=== PATIENT | male | born 1955 | race Caucasian/White ===

== ENCOUNTER 2016-12-29 06:02 | Inpatient (IN) | payer BC ==
--- NOTE | 2016-12-14 12:39 | HP ---
ADDENDUM FOR MEDICATIONS NOW INCLUDED ON THIS REPORT HISTORY AND PHYSICAL: DATE OF ADMISSION: 12/29/16 He will be coming into [facility] for a left total knee replacement on 12/29/16. CHIEF COMPLAINT: Left knee pain, deformity and limited walking distance. HISTORY OF PRESENT ILLNESS: His left knee has been bad for several years. His right knee is also bothering him a lot and he has gotten to the point where he can walk just 1 to 2 blocks. He is doing stairs one at a time and because his left knee is worse on stairs and with carrying things, he wanted to proceed with left total knee replacement first. PAST MEDICAL HISTORY: He is allergic to PENICILLIN, but he has had Keflex in the past, so we will plan to use cefazolin for his perioperative prophylaxis. PAST SURGICAL HISTORY: Low back, Dr. Tellez, and then the low back again with Dr. Ash. MEDICATIONS: Daily medications include: 1. Metoprolol. 2. One other antihypertensive. SOCIAL HISTORY: Smoking one-half pack per day. Drinks, 8 to 10 beers each Wednesday and Wednesday night. The patient has no history of chest pain, no history of heart attack. He has been seen and checked preoperatively by Dr. Mcmahan. REVIEW OF SYSTEMS: No history of DVT or pulmonary embolism. No history of bleeding tendencies, though he did have some extra bleeding after one of his low back surgeries. The kidneys are okay. No cancers. He has been seen and checked by Dr. Hartman. His prostate is okay and a cystoscopy this year was also okay. PHYSICAL EXAMINATION GENERAL: On current exam, he is overweight. He is not acutely distressed. HEENT: The cranial nerves are grossly intact. Head NC/AT. LUNGS: Clear bilaterally. HEART: Regular, S1 and S2 normal. No murmurs or gallops. ABDOMEN: Round, soft and nontender. I do not appreciate any organomegaly. EXTREMITIES: The left knee has varus with extension -3 degrees, flexion 105 with pain, stable MCL and LCL. Thighs and calves are soft. Left dorsalis pedis and posterior tibial pulses are 2+. DIAGNOSTIC STUDIES: Left knee x-rays; [id number] medial arthritis with sclerosis, osteophyte formation and lateral joint widening. IMPRESSION: Severe arthritis of the left knee. We discussed the risks and complications including that his weight and the presence of his smoking increases his risks for infection and deep venous thrombosis and pulmonary embolism. He would like to proceed with those risks, so that he can have less pain in his knee. PLAN: Left total knee replacement. ADDENDUM: MEDICATIONS: His daily meds are: 1. Tramadol 50 mg 1 or 2 at night as needed for pain. 2. Losartan 100 mg each day. 3. Metoprolol extended release 50 mg each day. 4. Aspirin 325 as needed. 5. Omeprazole 20 mg 1 a day. [id number]/[facility] #: [id number]/CPS #: [id number] MTDD
--- NOTE | 2016-12-14 13:54 | HP ---
ADDENDUM: MEDICATIONS: His daily meds are: 1. Tramadol 50 mg 1 or 2 at night as needed for pain. 2. Losartan 100 mg each day. 3. Metoprolol extended release 50 mg each day. 4. Aspirin 325 as needed. 5. Omeprazole 20 mg 1 a day. [id number]/[facility] #: [id number] MTDD
[~2016-12-29 06:02] MED LIST: Buffered Lidocaine 0.9% SYRIN* 5 ML/SYR SYRINGE INTRADERM ONE; Buffered Lidocaine 0.9% SYRIN* 5 ML/SYR SYRINGE ONE; Dexamethasone IV* 4 MG/ML 1 ML (4 MG) IV SLOW PU ONE; Dexamethasone IV* 4 MG/ML 1 ML (4 MG) ONE; ceFAZolin 2 GM PREMIX (*) 50 ML IVPB ONE
[2016-12-29] MEDS ORDERED: Levalbuterol 1.25MG/0.5ML NEB ONE (07:23)
[2016-12-29] MEDS ORDERED: Levalbuterol 0.63MG/3ML NEB* UNIT OF USE INH ONE (07:23)
[2016-12-29] MEDS ORDERED: KETAMINE HCL* 50 MG/ML 10 ML VIAL ONE (07:26)
[2016-12-29] MEDS ORDERED: Morphine PF AMP (0.5MG/ML)* 5 MG/10 ML AMP ONE (07:27)
[2016-12-29] MEDS ORDERED: Midazolam* 1 MG/ML 5 ML VIAL (5 MG) ONE ×2 (07:27→07:58)
[2016-12-29] MEDS ORDERED: Bupivacaine 0.5% SDV PF* 30 ML VIAL ONE (07:37)
[2016-12-29] MEDS ORDERED: fentaNYL* 50 MCG/ML 2 ML VIAL (100 MCG VIAL) ONE (07:42)
[2016-12-29] MEDS ORDERED: ceFAZolin 1 GM ADVAN(*) 1 GM ADDV.VIAL IVPB ONE (07:56)
[2016-12-29] MEDS ORDERED: oxyCODONE/Acetamin 5/325 MG* TAB PO PRN ×3 (08:42→11:45)
[2016-12-29] MEDS ORDERED: Naloxone* 0.4 MG/ML 1 ML VIAL IV PRN (08:42)
[2016-12-29] MEDS ORDERED: Nalbuphine* 20 MG/ML 1 ML VIAL IV PRN ×2 (08:42)
[2016-12-29] MEDS ORDERED: Ondansetron INJ* 2 MG/ML VIAL IV PRN ×2 (08:42→23:30)
[2016-12-29] MEDS ORDERED: fentaNYL* 50 MCG/ML 2 ML VIAL (100 MCG VIAL) IV PRN (08:42)
[2016-12-29] MEDS ORDERED: DiMENhydriNATE IV* 50 MG/ML VIAL IV PUSH PRN (08:42)
[2016-12-29] MEDS ORDERED: Propofol* 10 MG/ML 20 ML BTL IV PUSH ONE ×2 (08:51→10:11)
[2016-12-29] MEDS ORDERED: Lidocaine 1.5% EPI 1:200,000* 30 ML SDV ONE (09:58)
[2016-12-29] MEDS ORDERED: Morphine INJ* 4 MG/ML 1 ML CARPUJECT IV PRN (11:45)
[2016-12-29] MEDS ORDERED: Famotidine TAB* 20 MG PO PRN (12:05)
--- NOTE | 2016-12-29 12:49 | RAD ---
HISTORY: Status post left knee arthroplasty COMPARISONS: August 26, 2016 VIEWS: 2, Frontal and lateral views of the left knee FINDINGS: BONE DENSITY: Normal. BONES: The patient is status post left knee arthroplasty. There is no hardware failure or osteolysis. JOINTS: The patient is status post left knee arthroplasty. ALIGNMENT: There is no dislocation. SOFT TISSUES: There is postsurgical change to the soft tissue. OTHER FINDINGS: None. IMPRESSION: STATUS POST LEFT KNEE ARTHROPLASTY.
[2016-12-29] MEDS: ceFAZolin 1 GM VIAL(*) 1 GM in NS 0.9% 50 ML* 50 ML IVPB SCH ×2 (15:03→23:30)
[2016-12-29] MEDS: Nicotine Inhaler* 10 MG AMP Q2H PRN CRAVING INH ×2 (15:35→21:12)
[2016-12-29] MEDS ORDERED: Mouth Piece, Nicotine* 1 EACH CARTRIDGE INH ONE (16:00)
[2016-12-29] MEDS: Nicotine PATCH 14 MG/24 HR* PATCH TRANSDERM SCH (16:29)
[2016-12-29] MEDS: oxyCODONE/Acetamin 5/325 MG* TAB PO PRN ×2 (18:05→21:02)
[2016-12-29] MEDS: Docusate CAP* 100 MG PO SCH (21:02)
[2016-12-29] MEDS: Aspirin TAB* 325 MG PO SCH (21:03)
[2016-12-29 22:18] LABS: Manual Entry Verification MER0007; Rapid HIV INT CONT QC Line Present; Rapid HIV Kit Lot# H017003
[2016-12-29] MEDS ORDERED: Acetaminophen TAB* 325 MG PO PRN (23:30)
[2016-12-29] MEDS ORDERED: diPHENhydraMINE PO* 25 MG PO PRN (23:30)
[2016-12-29] MEDS ORDERED: diPHENhydraMINE IV* 50 MG/ML 1 ml VIAL (BENADRYL) IV PRN (23:30)
[2016-12-29] MEDS: Nicotine Patch Removal NOTE PATCH OFF SCH (23:32)
[2016-12-30] MEDS: Temazepam CAP* 15 MG PO PRN (00:08)
[2016-12-30] MEDS: oxyCODONE/Acetamin 5/325 MG* TAB PO PRN ×5 (00:08→19:27)
--- NOTE | 2016-12-30 00:46 | OP ---
CC: Dr. Mcmahan * DATE OF OPERATION: 12/29/16 - ROOM #347 DATE OF : 57 SURGICAL CARE: Left knee. SURGEON: Joaquim Mcguire MD ASSISTANTS: ELISHA Parks, nurse first aid and Rohini rn medical surgical. ANESTHESIOLOGIST: Dr. Les Brice. ANESTHESIA: Spinal with Duramorph and IV sedation. PRE-OP DIAGNOSIS: Severe arthritis of the left knee with varus malalignment. POST-OP DIAGNOSIS: Severe arthritis of the left knee with varus malalignment. OPERATIVE PROCEDURE: Left total knee replacement. COMPONENTS UTILIZED: [place] Persona knee was utilized posterior stabilized type , size 9 femur, 35 patella, size F tibia and a 10 articular surface. COMPLICATIONS: There were no complications. DRAINS: One Hemovac drain left knee at the end of the case. CONDITION: Stable to the recovery room. OPERATIVE INDICATIONS: Persistent severe pain, left knee. It has been nonresponsive to nonoperative care and a left total knee replacement was recommended. DESCRIPTION OF PROCEDURE: The patient was brought to the operating room and placed on the operating room table in a supine position, then into a seated position for administration of spinal anesthetic. After that was done, he was returned to the supine position. A Haywood catheter was inserted. The left proximal thigh was wrapped with a tourniquet. The left knee was given a preliminary chlorhexidine prep and then the left leg was prepped from the tourniquet to the tips of the toes and draped free and carefully sealed off in the usual fashion for arthroplasty of the knee. The leg, ankle and foot portion were sealed off with an impermeable drape with a Vi-Drape and Ioban drapes above that. We did our universal protocol time-out confirming Kenny Nelson and a plan for left total knee replacement. We all agreed and we proceeded. The surgical care was done without tourniquet until we got to the cleanup and cementing phase of the case and then the surgery was done with the knee acutely flexed. The left foot was kept on a padded foot piece. Skin incision went from two fingerbreadths proximal to the superior pole of the patella to the medial aspect of the tibial tubercle. Skin and subcu divided down to the deep fascia. Careful hemostasis checked and achieved throughout the case utilizing electrocautery. The knee was entered medial parapatellar after dividing the quad tendon at the junction of the vastus medialis tendon and the rectus femoris tendon staying as close to vastus medialis muscle as possible. The knee had clear, slightly goldish synovial fluid that was abundant. The anteromedial soft tissues on the tibia were divided down to the bone just medial to the tibial tubercle. The anteromedial soft tissues on tibia were elevated subperiosteally going around to the deep MCL and then to the posteromedial corner of the knee. The knee had complete eburnation of medial femoral condyle, medial tibial plateau. The medial surface of the lateral femoral condyle was also completely eburnated wearing against the tibial spine. The patella had large osteophytes. There were large osteophytes on the medial femoral condyle and medial tibial plateau and the intercondylar notch. The remains of the anterior horn of the medial meniscus were carefully excised. The MCL was actually visualized during the case and carefully preserved throughout. The ACL and PCL were uplifted from their femoral origins and the tibial was made, so that it could be subluxated forward from under the femur and the PCL was carefully excised. Great care was taken while working posteriorly in the knee and towards the popliteal fossa. The distal anterior femur was exposed subperiosteally for referencing and measuring. The suprapatellar pouch had thickened synovium that was 3 to 4 mm thickened and it was carefully excised in the middle of the case. The lateral meniscus was carefully excised and care taken to see that we had good hemostasis at the periphery of the lateral meniscus in the region of the lateral geniculate. The proximal tibial cut was made first. Our goal here was to have a tibial surface so that it would have a slight posterior slope and would be perpendicular to the long axis of the tibia, removing just 1 to 2 mm at the low point of the medial tibia and 10 to 14 mm laterally. After this was completed, then the femoral intramedullary drill was utilized and the femoral canal was suctioned to discourage embolization. The distal femoral cutting guide was then applied on 2 with 6 degrees of valgus and the distal femoral cuts were completed and the extension gap was just right for a 10-mm block. The femur was measured for a 9. The femoral 4- in-1 cuts were completed with the guide for the 9 and following this we finished removal of the medial meniscus, the PCL , posterior and some remaining lateral meniscus. Osteophyte was removed from the posterior medial femoral condyle. At this stage, we had nice ligamentous balance in flexion at 90 degrees with a 10-mm block. The femur was then cleaned x6 with pulse saline, suctioned empty and bone plug inserted. The tibia was completed for a size F. The knee was then articulated and extended with an F tibia, 10 articulate surface and then 9 femur with full knee extension , stable ligaments in extension, and stable ligaments in 90 degrees of flexion. The patella was cut flat, a 35 was chosen, 3 drill holes were made and these were undercut for optimal cement interdigitation. A lateral release was not necessary. The final components were then opened. The leg was exsanguinated, the tourniquet was elevated to 275 and the knee was cleaned in extension with 2 L of pulse saline irrigation. The knee was then cleaned in flexion with 2 L of pulse saline irrigation. All the bony surfaces were cleaned with clean lap, sponges and dried. The cement was mixed, the components were cemented into position, the patella followed by the tibia, followed by the femur. Each component was impacted. Excess cement was removed and the knee was articulated and extended during the final hardening. After final hardening, we checked posteriorly for retained cement fragments. These were excised. The lidocaine with epinephrine inserted posteromedial, medial and lateral into the pericapsular tissues. We then proceeded with careful closure. The quad mechanism closed with interrupted #1 Vicryl in figure -of-eight fashion down to and including the medial retinaculum. A Hemovac drain was brought out the superolateral suprapatellar pouch. We irrigated during closure with saline as well. After closure of the medial retinaculum and closing distally with 0 Vicryl, then the deep fascia and bursa closed with interrupted 0 Vicryl. Superficial subcu closed with 3-0 Vicryl and the skin closed with carlos. The skin was washed and dried and covered with Betadine soaked release followed by sterile gauze, sterile Webril, Cryo-therapy cuff, two ABD pads and then a 6-inch Reji bandage loosely applied. The posterior tibial pulse was 2+ at the end of the case and the knee was also flexed completely and extended several times during the closure, flexing the knee beyond 120 degrees several times during the closure and noting that we had a full extension and stable ligaments in extension and stable ligaments in 90 degrees of flexion. The patient was returned to the recovery room in stable and satisfactory condition, having tolerated the procedure very well. Postoperative radiographs showed satisfactory alignment of the knee replacement on AP and lateral views. [id number]/[facility] #: [id number] GUICHO
[2016-12-30 05:40] LABS: Hematocrit 35 % (42-52); Hemoglobin 11.7 g/dl (14.0-18.0)
[2016-12-30 06:03] LABS: Calcium 8.5 mg/dL (8.6-10.3); EGFR African American 77.9 (>60); EGFR Non-African American 60.6 (>60); Potassium 4.2 mmol/L (3.5-5.0)
[2016-12-30] MEDS: Omeprazole CAP* 20 MG PO SCH (06:31)
[2016-12-30] MEDS: HYDROmorphone INJ* 1 MG/ML CARPUJECT SYRINGE IV SLOW PU PRN ×2 (07:23→12:52)
--- NOTE | 2016-12-30 07:29 | PN ---
Progress Note - Progress Note Date of Service: 12/30/16 SOAP: Subjective:Pain left knee and little sleep [] Objective:99.1F and moving and breathing well. Alert, cooperative. Able to SLR easily left. 2 drains rmoved left knee. Left PT pulse is 2 plus. All exercises done left leg. H/H is 11.7 and 35%. Electrolytes are OK. HEP C is negative and HIV is NON React. [] Assessment: Doing satisfactorily. Needs pain med which is ordered. [] Plan: Up with walker and drinking and doing brething exercises. []
[2016-12-30] MEDS: Nicotine PATCH 14 MG/24 HR* PATCH TRANSDERM SCH (07:36)
[2016-12-30] MEDS: Nicotine Inhaler* 10 MG AMP Q2H PRN CRAVING INH ×2 (07:37→21:47)
[2016-12-30] MEDS: Docusate CAP* 100 MG PO SCH ×2 (08:10→21:45)
[2016-12-30] MEDS: ceFAZolin 1 GM VIAL(*) 1 GM in NS 0.9% 50 ML* 50 ML IVPB SCH (08:10)
[2016-12-30] MEDS: Metoprolol Tartrate TAB* 25 MG PO SCH (08:10)
[2016-12-30] MEDS: Aspirin TAB* 325 MG PO SCH ×2 (08:10→21:44)
[2016-12-30] MEDS: Vitamin THERAPEUTIC TAB PO SCH (08:10)
[2016-12-30] MEDS ORDERED: Losartan TAB* 25 MG PO SCH (09:00)
[2016-12-30] MEDS ORDERED: oxyCODONE/Acetamin 5/325 MG* TAB PO PRN (13:31)
[2016-12-30] MEDS ORDERED: HYDROmorphone INJ* 1 MG/ML CARPUJECT SYRINGE IV SLOW PU PRN (13:35)
[2016-12-30 13:53] LABS: Hematocrit 29 % (42-52); Hemoglobin 9.8 g/dl (14.0-18.0); Mean Corpuscular HGB Conc 34 g/dl (31-36); Mean Corpuscular Hemoglobin 28 pg (27-31); Mean Corpuscular Volume 83 fL (80-94); Mean Platelet Volume 7 um3 (7.4-10.4); Red Cell Distribution Width 13 % (10.5-15); White Blood Count 11.6 10^3/ul (3.5-10.8)
[2016-12-30 13:55] LABS: Comments Flag Yes
[2016-12-30 13:56] LABS: Add Diff/Slide Review? Slide Review Added
[2016-12-30 13:56] LABS: BUN/Creatinine Ratio 19.8 (8-20); EGFR African American 86.9 (>60); EGFR Non-African American 67.6 (>60); Potassium 3.9 mmol/L (3.5-5.0)
[2016-12-30 13:58] LABS: Troponin I 0.01 ng/mL (<0.04)
[2016-12-30] MEDS ORDERED: Perflutren Lipid Microsphere* 3 ML VIAL ONE (15:06)
--- NOTE | 2016-12-30 15:58 | CONS ---
CC: Dr. Mcmahan; Dr. Mcguire * CONSULTATION REPORT: DATE OF CONSULT: 12/30/16 PRIMARY CARE PROVIDER: Dr. Mcmahan. REQUESTING PHYSICIAN IN CONSULT: Dr. Mcguire. ATTENDING PHYSICIAN WHILE IN THE HOSPITAL: Dr. Eloina Broussard (report dictated by Mert Michel NP). REASON FOR MEDICAL CONSULTATION: Evaluation of presyncope. HISTORY OF PRESENT ILLNESS: Mr. Nelson is a 61-year-old male patient who presented to Dr. Mcguire's service in the outpatient setting with complaints of knee discomfort. He had failed conservative therapy. He underwent a total knee replacement yesterday on the left side, which he was doing well with up until this morning. He was sitting in his chair just about 30 minutes ago, he had received a dose of Dilaudid 20 minutes prior. About 20 minutes after that, he started feeling lightheaded, dizzy, felt like that he was going to faint. He rang his cuello, the nurses came in and they evaluated him, checked his blood pressure and his blood pressure was in 70s. They immediately called a catcall and we responded. In evaluating the patient, he says he feels lightheaded. He says he is not having any chest pain. There is no shortness of breath. Denies any abdominal pain. He does not feel nauseated. He said his fingertips felt tingling, he denied any trouble with speech or facial drooping or weakness to one side. He says he was not having any knee pain. Currently, he does state that he did not have any palpitations before this, after he just felt like he had tunnel vision like he was going to faint. Immediately fluids were opened wide open and with about 600 mL falling in he was starting to feel a lot better and his pressures were actually coming up. Because of this episode, we were asked to evaluate in consult. PAST MEDICAL HISTORY: According to the patient include: 1. Back pain. 2. Hypertension. 3. GERD. PAST SURGICAL HISTORY: 1. He has had a back surgery x2. 2. He has had clavicle surgery. 3. He has had a left total knee replacement. MEDICATIONS: The home medications according to the list that he presented to us include: 1. Tramadol 100 mg every 6 hours as needed. 2. Prilosec 20 mg p.o. daily. 3. Naproxen 500 mg every 8 hours as needed. 4. Lopressor 25 mg daily. 5. Losartan 100 mg daily. 6. Loperamide 8 mg p.o. in the morning. 7. Pepcid 1 tablet p.o. in the morning as needed. 8. Diphenhydramine 150 mg at bedtime. 9. Aleve 440 mg p.o. in the morning as needed. ALLERGIES TO MEDICATIONS: Include MORPHINE, ADHESIVE TAPE, and PENICILLIN. FAMILY HISTORY: Father of prostate cancer. Mother had a history of Alzheimer's. SOCIAL HISTORY: He does drink on the weekends. He does smoke about about half - pack-a-day. Surrogate decision maker is not appointed at this point; it was reviewed, he did not wish to appointment. REVIEW OF SYSTEMS: There is no documented fever. He denied any significant weight change. There was no double vision or no ear discharge. He denies having any rhinorrhea. There is no sore throat, no thyroid enlargement. Denies having any chest pain. Denies any orthopnea, no nocturnal dyspnea. There was no abdominal pain. There was no nausea, no vomiting. There was no dysuria. No frequency. There was presyncope, but no loss of conscious. There was no seizure like activity. Review of 14 systems completed, all others negative. PHYSICAL EXAM: Vital Signs: Blood pressure this morning was 123/65, pulse 80, respirations 17, his O2 sat was 100%, temperature was 98.8. During the catcall , initial blood pressure was 75/40. His repeat blood pressure now was 102/60. General: At this time, Mr. Nelson is a 61-year-old male patient. He appears to be well-nourished, well-developed, does not appear to be in any acute distress currently. He is awake and he is alert. HEENT: Head, atraumatic, normocephalic. Eyes: EOMs intact. Sclerae anicteric, not pale. Neck: Supple. Throat: Oral mucosa appears to be moist. No oropharyngeal erythema. Heart: Sounds S1, S2. Regular rate and rhythm. No murmurs, rubs, or gallops. Lungs: Clear to auscultation. No wheezes, rales, or rhonchi. Abdomen: Soft, flat, nontender. Bowel sounds are present. Extremities: Distal CSM checks are intact to the left lower extremity. Neurologically, he is awake, he is alert, he is oriented x3. His speech is clear. His tongue is midline. His technical support manager were equal. Iwwtyw-hv-wcyi intact bilaterally. Zmnx-fd-lpnt intact bilaterally. He is unable to ambulate with the left leg because of his preoperative leg, but he has no gross focal deficits. His skin is intact with the exception there is an incision to the left knee, which is covered with an Reji dressing dry and intact. LABORATORY DATA: The labs from today, hemoglobin 11.7, hematocrit 35. His sodium is 136, potassium 4.2, chloride 103, his bicarb was 27, his BUN was 22, creatinine 1.22. Serology was negative. For hep C and HIV, he did have an EKG obtained today, which revealed a normal sinus rhythm with rates of 70s. He did have a right bundle-branch block. He did have subtle elevation in V2, but when I looked back into his EKGs previously he has had elevation in this lead, appears to be J point elevation, appears to be unchanged and is not new. Old medical records were reviewed. ASSESSMENT AND PLAN: Mr. Nelson is a 61-year-old male patient that presented to orthopedic services for an elective left total knee replacement. Today after 20 minutes of receiving some Dilaudid. He started feeling dizzy, felt like he was going to pass out. His pressures were in the 70s. We were asked to evaluate in consult. My recommendations at this point are: 1. Status post right total knee replacement, further management by Dr. Mcguire. 2. Hypertension. I am going to cut back on his losartan in the immediate postoperative setting. I will continue the beta bari. We will monitor the blood pressure closely; if we need to, we will restart the losartan, but this may have contributed. 3. Presyncope. I will cycle troponins. His EKG was stable. I am going to repeat his lytes and CBC now. We will get orthostatics when we are able. We will check an echo. He is asymptomatic now. We are going to give him a liter of fluids wide open, which seems to be helping him and we will continue to follow him closely. 4. Gastroesophageal reflux disease, continue meds as described. 5. DVT prophylaxis. Per the primary team. 6. Code status. Full code. 7. Fluids, electrolytes, and nutrition. I would recommend a regular diet. TIME SPENT: On consult 60 minutes, greater than half the time spent face-to- face with the patient obtaining history and physical; other half time spent going over the plan of care with the patient and implementing the plan of care. I did discuss this plan of care with my attending, Dr. Broussard; she is in agreement. MERT MICHEL, CIGARETTE SELLER [id number]/[facility] #: [id number] GUICHO
--- NOTE | 2016-12-30 16:05 | ECHO ---
Patient: JESUS WANG [facility] Rec#: [id number] : 1955 Date: 12/30/2016 Age: 61y Height: 167.64 cm / 66.0 in Weight: 127.91 kg / 281.9 lbs Sex: M BSA: 2.31 Room#: 347 Admit Date#: 12/29/2016 Type: Inpatient Referring: Mert Michel NP Reading: Esthela Huddleston MD Lieutenant General: Yary Bautista RDCS,RDMS CC: Bobby Mcmahan MD Transthoracic Echocardiogram Indication: Pre-syncope BP: 131/69 HR: 86 Rhythm: NSR Findings History: S/P left knee replacement, smoker Technical Comments: The study is technically limited due to poor acoustic windows. Completed 1550 Left Ventricle: The left ventricular chamber size is decreased.on visual estimate LV chamber diameter appears small. Mild to moderate concentric left ventricular hypertrophy is observed. The left ventricle appears hyperdynamic. The estimated ejection fraction is 60-65%. Abnormal left ventricular diastolic filling is observed, consistent with impaired relaxation. Left Atrium: The left atrium is mildly dilated. Right Ventricle: The right ventricular chamber size and systolic function are within normal limits. The right ventricle wall thickness is mildly increased. Right Atrium: The right atrium is slightly dilated. Aortic Valve: There is no evidence of aortic valve thickening. Systolic excursion of the aortic valve is normal. There is no evidence of aortic regurgitation. There is no evidence of aortic stenosis. Mitral Valve: The mitral valve leaflets do not appear thickened. There is no evidence of mitral regurgitation. There is no evidence of mitral stenosis. Tricuspid Valve: The tricuspid valve leaflets are normal. There is trace tricuspid regurgitation. Unable to estimate the right ventricular systolic pressure. Pulmonic Valve: The pulmonic valve structure is not well visualized. Pericardium: There is no significant pericardial effusion. Aorta: The ascending aorta is not well visualized. There is no dilatation of the aortic arch. The aortic root is normal in size. Pulmonary Artery: The main pulmonary artery is not well visualized. Venous: The inferior vena cava is dilated. There is a greater than 50% respiratory change in the inferior vena cava dimension. Contrast: Definity was used to optimize study. A total of 4 ml was used Conclusions The study is technically limited due to poor acoustic windows. Mild to moderate concentric left ventricular hypertrophy is observed. Visual appearance of small LV chamber. The left ventricle appears hyperdynamic. Normal wall motion. The estimated ejection fraction is 60-65%. Abnormal left ventricular diastolic filling is observed, consistent with impaired relaxation. The right ventricle wall thickness is mildly increased. The right ventricular chamber size and systolic function are within normal limits to hyperdynamic. Bi atrial enlargement. All valves appear structurally normal with normal function. No prior echo to compare. Measurements Name Value Normal Range RVDdMajor (2D) 3.3 cm (2.2 - 4.4) RAd ISD 4CH 5.3 cm (3.4 - 4.9) RA (A4C)W 4.2 cm (2.9 - 4.6) Aortic Annulus 2.4 cm (1.4 - 2.6) Aortic arch 3 cm (1.8 - 3.4) LAd ISD 4CH 5.8 cm (2.9 - 5.3) LA ISD 4CH W 5.2 cm (2.5 - 4.5) Name Value Normal Range LA ESV SP 4CH (A/L) 116.46 ml - LA ESV SP 2CH (A/L) 69.87 ml - LA ESV BP (A/L) 94.25 ml - LA ESV BP (A/L) index 41 ml/m2 - LA ESV SP 4CH (MOD) 110.51 ml - LA ESV SP 2CH (MOD) 66.42 ml - Name Value Normal Range MV E-wave Vmax 0.7 m/sec - MV deceleration time 110 msec - MV A-wave Vmax 0.9 m/sec - MV E:A ratio 0.8 ratio - P. vein S-wave Vmax 0.5 m/sec - P. vein D-wave Vmax 0.4 m/sec - P. vein S:D Vmax ratio 1.2 ratio - P. vein A-wave duration 93 msec - Name Value Normal Range AV Vmax 1.6 m/sec - AV VTI 26 cm - AV peak gradient 10 mmHg - AV mean gradient 5.6 mmHg - LVOT Vmax 1.4 m/sec - LVOT VTI 26 cm - LVOT peak gradient 8 mmHg - LVOT mean gradient 4.4 mmHg - DARYN Vmax 1.1 m/sec - Name Value Normal Range RAP 8 mmHg - IVC diameter 2.3 cm - Name Value Normal Range PV Vmax 0.9 m/sec - PV peak gradient 3.2 mmHg -
[2016-12-30] MEDS ORDERED: Famotidine TAB* 20 MG PO ONE (21:28)
[2016-12-30] MEDS: fentaNYL* 50 MCG/ML 2 ML VIAL (100 MCG VIAL) IV SLOW PU PRN (21:45)
[2016-12-30] MEDS: Nicotine Patch Removal NOTE PATCH OFF SCH (21:47)
[2016-12-31] MEDS: Temazepam CAP* 15 MG PO PRN ×2 (00:20→21:25)
[2016-12-31] MEDS: oxyCODONE/Acetamin 5/325 MG* TAB PO PRN ×3 (00:20→13:21)
[2016-12-31] MEDS: fentaNYL* 50 MCG/ML 2 ML VIAL (100 MCG VIAL) IV SLOW PU PRN (05:12)
[2016-12-31] MEDS: Omeprazole CAP* 20 MG PO SCH (07:12)
[2016-12-31] MEDS: Nicotine PATCH 14 MG/24 HR* PATCH TRANSDERM SCH (07:19)
[2016-12-31] MEDS: Vitamin THERAPEUTIC TAB PO SCH (08:23)
[2016-12-31] MEDS: Aspirin TAB* 325 MG PO SCH ×2 (08:23→19:35)
[2016-12-31] MEDS: Metoprolol Tartrate TAB* 25 MG PO SCH (08:23)
[2016-12-31] MEDS: Docusate CAP* 100 MG PO SCH ×2 (08:23→21:21)
[2016-12-31] MEDS: Magnesium Hydroxide LIQ* 30 ML UDC PO SCH ×3 (08:25→21:21)
[2016-12-31 09:52] LABS: Hematocrit 27 % (42-52); Hemoglobin 9.3 g/dl (14.0-18.0); Mean Corpuscular HGB Conc 35 g/dl (31-36); Mean Corpuscular Hemoglobin 28 pg (27-31); Mean Corpuscular Volume 82 fL (80-94); Mean Platelet Volume 7 um3 (7.4-10.4); Red Blood Count 3.32 10^6/ul (4.0-5.4); Red Cell Distribution Width 13 % (10.5-15); White Blood Count 9.9 10^3/ul (3.5-10.8)
[2016-12-31 09:53] LABS: Comments Flag Yes
[2016-12-31 10:06] LABS: BUN/Creatinine Ratio 15.3 (8-20); EGFR African American 143.2 (>60); EGFR Non-African American 111.4 (>60); Potassium 3.9 mmol/L (3.5-5.0)
[2016-12-31] MEDS: oxyCODONE TAB* 5 MG TAB PO PRN ×3 (10:45→19:35)
--- NOTE | 2016-12-31 10:46 | PN ---
Progress Note - Progress Note Date of Service: 12/31/16 SOAP: Subjective: [] Still pain left knee but responding to percocet and his knee feels better after dressing change this AM. Objective: He is ambulatory with the walker WBAT left. 99.1 F. Hct is 29%, yesterday 35%. Yesterday hypotensive after dilaudid and evaluated by the hospitalist team, hydrated and he has been stable since. ECHO shows moderate LVH and biatrial enlargement, troponins negative. The left knee surgery is clean and dry with expected swelling. New dressing applied. PT pulse left is + +. [] Assessment: Stable, acute blood loss anemia. He is making progress in therapy [] Plan: Try to manage pain with oral meds and continue TKR rehab. protocol. Goal of home 01/01 []
--- NOTE | 2016-12-31 11:33 | PN ---
Subjective Date of Service: 12/31/16 Interval History: This is a 61 yo gentleman who is POD #2 s/p L TKR who experienced an acute hypotensive event yesterday. BP improved with fluid bolus and has remained stable since. Hypotension appeared to be shortly after a dose of IV Dilaudid. Patient reports his pain has been adequately managed with oral analgesics since. No further dizzy episodes. No c/os of CP, SOB, abd pain. Occasional mild nausea, but appetite ok. He has been monitored on telemetry without changes in rhythm. Some blood loss anemia noted, but not severe, no transfusion. Objective Active Medications: Acetaminophen (Tylenol Tab*) 650 mg PO Q4H PRN PRN Reason: PAIN OR TEMPERATURE Aspirin (Aspirin Tab*) 325 mg PO BID [facility] Last Admin: 12/31/16 08:23 Dose: 325 mg Diphenhydramine HCl (Benadryl Iv*) 25 mg IV Q6H PRN PRN Reason: itching Diphenhydramine HCl (Benadryl Po*) 25 mg PO Q6H PRN PRN Reason: itching Docusate Sodium (Colace Cap*) 100 mg PO BID [facility] Last Admin: 12/31/16 08:23 Dose: 100 mg Famotidine (Pepcid Tab*) 20 mg PO QAM PRN PRN Reason: INDIGESTION Last Admin: 12/30/16 08:11 Dose: 20 mg Fentanyl Citrate (Fentanyl*) 25 mcg IV SLOW PU Q6H PRN PRN Reason: PAIN Last Admin: 12/31/16 05:12 Dose: 25 mcg Lactated Ringer's (Lactated Ringers 1000 Ml Bag*) 1,000 mls @ 125 mls/hr IV PER RATE [facility] Last Admin: 12/30/16 14:46 Dose: 125 mls/hr Magnesium Hydroxide (Milk Of Magnesia Liq*) 30 ml PO BID [facility] Last Admin: 12/31/16 08:26 Dose: Not Given Metoprolol Tartrate (Lopressor Tab*) 25 mg PO QAM [facility] Last Admin: 12/31/16 08:23 Dose: 25 mg Multivitamins (Theragran Tab*) 1 tab PO DAILY [facility] Last Admin: 12/31/16 08:23 Dose: 1 tab Nicotine (Nicotine Patch 14 Mg/24 Hr*) 1 patch TRANSDERM DAILY [facility] Last Admin: 12/31/16 07:19 Dose: 1 patch Nicotine (Nicotine Inhaler*) 10 mg INH Q3H PRN PRN Reason: CRAVING Last Admin: 12/30/16 21:47 Dose: 10 mg Omeprazole (Prilosec Cap*) 20 mg PO 0730 [facility] Last Admin: 12/31/16 07:12 Dose: 20 mg Ondansetron HCl (Zofran Inj*) 4 mg IV Q6H PRN PRN Reason: nausea Last Admin: 12/31/16 07:15 Dose: 4 mg Oxycodone HCl (Roxycodone Tab*) 10 mg PO Q4H PRN PRN Reason: PAIN - SEVERE Last Admin: 12/31/16 10:45 Dose: 10 mg Oxycodone/Acetaminophen (Percocet 5/325 Tab*) 1 tab PO Q4H PRN PRN Reason: PAIN - MODERATE Oxycodone/Acetaminophen (Percocet 5/325 Tab*) 2 tab PO Q4H PRN PRN Reason: PAIN - MODERATE TO SEVERE Last Admin: 12/31/16 08:24 Dose: 2 tab Pharmacy Profile Note (Nicotine Patch Removal Note*) 1 note PATCH OFF 2100 [facility] Last Admin: 12/30/16 21:47 Dose: 1 note Temazepam (Restoril Cap*) 15 mg PO BEDTIME PRN PRN Reason: INSOMNIA Last Admin: 12/31/16 00:20 Dose: 15 mg Vital Signs: Temp Pulse Resp BP Pulse Ox 98.2 F 98 20 159/66 97 12/31/16 07:28 12/31/16 07:28 12/31/16 10:45 12/31/16 07:28 12/31/16 08:57 Oxygen Devices in Use Now: None Appearance: Well appearing, NAD Respiratory: Symmetrical Chest Expansion and Respiratory Effort, Clear to Auscultation Cardiovascular: NL Sounds; No Murmurs; No JVD, RRR Abdominal: NL Sounds; No Tenderness; No Distention Extremities: No Edema, - - L knee with an intact and clean surgical dressing Skin: No Rash or Ulcers Neurological: Alert and Oriented x 3 Result Diagrams: 12/31/16 09:45 12/31/16 09:45 Diagnostic Imaging: Echo - LVEF 60-65%, mild-mod LVH with some diastolic dysfunction. No sig valvular abnl EKG - NSR, no acute ischemic changes Assess/Plan/Problems-Billing Assessment: This is a 61 yo male with HTN, GERD and back pain now s/p TKR. Hospitalist group consulted after a presyncopal event POD #1. - Patient Problems (1) Status post total knee replacement Comment: POD #2, post op management per ortho surgery (2) Pre-syncope Comment: Hypotensive, responded to fluid bolus Likely related to IV Dilaudid, losartan and mild blood loss anemia Now asx and normotensive No changes on tele, may discontinue Echo essentially normal and troponins neg x 3d (3) Blood loss anemia Comment: Hgb 9.3 g/dl this am Asx, no indication for transfusion (4) Hypertension Comment: Losartan held today Normotensive to mild HTN Can resume losartan tomorrow am (5) GERD (gastroesophageal reflux disease) Comment: Cont PPI (6) Full code status (7) DVT prophylaxis Comment: ASA bid per ortho Status and Disposition: Dispo per ortho surgery. Patient appears medically stable. Hospitalist group will sign off at this time, but are happy to re-evaluate if necessary
[2016-12-31] MEDS: Nicotine Patch Removal NOTE PATCH OFF SCH (21:27)
[2017-01-01] MEDS: oxyCODONE TAB* 5 MG TAB PO PRN (05:44)
[2017-01-01] MEDS: Omeprazole CAP* 20 MG PO SCH (07:45)
[2017-01-01 07:57] LABS: Hematocrit 29 % (42-52); Hemoglobin 10.1 g/dl (14.0-18.0)
[2017-01-01] MEDS ORDERED: Losartan TAB* 25 MG PO SCH (09:00)
--- NOTE | 2017-01-01 09:22 | PN ---
Progress Note - Progress Note Date of Service: 01/01/17 SOAP: Subjective: 61 y/o male s/p L TKA POD #[address] Mcguire. Patient denies lightheaded, SOB, chest pain. + knee pain well controlled with PO pain medications. No further syncopal episodes. No complaints, questions, eager for D/C. Objective: General- Well appearing, sitting in chair comfortably, AO MSK- Dressing removed, incision c/d/i, carlos in place, neosporin place with gauze/ OMAR. + DF/PF b/l, neg homans b/l, + moderate non-pitting edema L LE. NVI. Laboratory Results - last 24 hr 12/29/16 12/31/16 12/31/16 21:24 09:45 09:45 WBC 9.9 RBC 3.32 L Hgb 9.3 L Hct 27 L MCV 82 MCH 28 MCHC 35 RDW 13 Plt Count 247 MPV 7 L Neut % (Auto) 70.7 Lymph % (Auto) 12.1 L [place] % (Auto) 16.3 H Eos % (Auto) 0.2 Baso % (Auto) 0.7 Absolute Neuts (auto) 7.0 Absolute Lymphs (auto) 1.2 Absolute Monos (auto) 1.6 H Absolute Eos (auto) 0 Absolute Basos (auto) 0.1 Absolute Nucleated RBC 0 Nucleated RBC % 0 Sodium 137 Potassium 3.9 Chloride 103 Carbon Dioxide 28 Anion Gap 6 BUN 11 Creatinine 0.72 Est GFR ( Amer) 143.2 Est GFR (Non-Af Amer) 111.4 BUN/Creatinine Ratio 15.3 Glucose 157 H Calcium 8.0 L Hepatitis Be Antibody Negative Hepatitis Be Antigen Negative 01/01/17 07:30 WBC RBC Hgb 10.1 L Hct 29 L MCV MCH MCHC RDW Plt Count MPV Neut % (Auto) Lymph % (Auto) [place] % (Auto) Eos % (Auto) Baso % (Auto) Absolute Neuts (auto) Absolute Lymphs (auto) Absolute Monos (auto) Absolute Eos (auto) Absolute Basos (auto) Absolute Nucleated RBC Nucleated RBC % Sodium Potassium Chloride Carbon Dioxide Anion Gap BUN Creatinine Est GFR ( Amer) Est GFR (Non-Af Amer) BUN/Creatinine Ratio Glucose Calcium Hepatitis Be Antibody Hepatitis Be Antigen Vital Signs Temp 99.3 F 01/01/17 07:25 Pulse 102 01/01/17 07:25 Resp 16 01/01/17 07:44 BP 128/62 01/01/17 07:25 Pulse Ox 96 01/01/17 08:29 Intake & Output 12/31/16 01/01/17 01/01/17 18:59 06:59 18:59 Intake Total 1115 1000 460 Output Total 700 1450 100 Balance 415 -450 360 Intake: Oral 1115 1000 460 Output: Urine 700 1450 100 Other: Estimated Void Medium Date of Last Bowel 12/31/16 Movement # Bowel Movements 2 0 Estimated Stool Amount Medium # Voids 2 Assessment: Stable 61 y/o male s/p L TKA POD #[address] Mcguire. Plan: - DvT prophylaxis ASA 325mg BID - Oxycodone, motrin, tylenol for pain control upon D/C - FOllow up with DR. Mcguire within 4 weeks - VNS/ PT at home Active Medications Generic Name Dose Route Start Last Admin Trade Name Freq PRN Reason Stop Dose Admin Acetaminophen 650 mg 12/29/16 23:30 Tylenol Tab* PO Q4H PRN PAIN OR TEMPERATURE Aspirin 325 mg 12/29/16 21:00 12/31/16 19:35 Aspirin Tab* PO 325 mg BID YI Administration Diphenhydramine HCl 25 mg 12/29/16 23:30 Benadryl Iv* IV Q6H PRN itching Diphenhydramine HCl 25 mg 12/29/16 23:30 Benadryl Po* PO Q6H PRN itching Docusate Sodium 100 mg 12/29/16 21:00 12/31/16 21:21 Colace Cap* PO Not Given BID YI Famotidine 20 mg 12/29/16 12:05 12/30/16 08:11 Pepcid Tab* PO 20 mg QAM PRN Administration INDIGESTION Fentanyl Citrate 25 mcg 12/30/16 14:11 12/31/16 05:12 Fentanyl* IV SLOW PU 25 mcg Q6H PRN Administration PAIN Lactated Ringer's 1,000 mls @ 125 mls/hr 12/29/16 12:00 12/30/16 14:46 Lactated Ringers 1000 Ml Bag* IV 125 mls/hr PER RATE YI Administration Losartan Potassium 100 mg 01/01/17 09:00 Cozaar Tab* PO DAILY YI Magnesium Hydroxide 30 ml 12/31/16 08:00 12/31/16 21:21 Milk Of Magnesia Liq* PO Not Given BID YI Metoprolol Tartrate 25 mg 12/30/16 09:00 12/31/16 08:23 Lopressor Tab* PO 25 mg QAM YI Administration Multivitamins 1 tab 12/30/16 09:00 12/31/16 08:23 Theragran Tab* PO 1 tab DAILY YI Administration Nicotine 1 patch 12/29/16 16:00 12/31/16 07:19 Nicotine Patch 14 Mg/24 Hr* TRANSDERM 1 patch DAILY YI Administration Nicotine 10 mg 12/29/16 15:14 12/30/16 21:47 Nicotine Inhaler* INH 10 mg Q3H PRN Administration CRAVING Omeprazole 20 mg 12/30/16 07:30 01/01/17 07:45 Prilosec Cap* PO 20 mg 0730 YI Administration Ondansetron HCl 4 mg 12/29/16 23:30 12/31/16 07:15 Zofran Inj* IV 4 mg Q6H PRN Administration nausea Oxycodone HCl 10 mg 12/31/16 10:19 01/01/17 05:44 Roxycodone Tab* PO 10 mg Q4H PRN Administration PAIN - SEVERE Oxycodone/Acetaminophen 1 tab 12/30/16 13:31 Percocet 5/325 Tab* PO Q4H PRN PAIN - MODERATE Oxycodone/Acetaminophen 2 tab 12/30/16 13:31 12/31/16 13:21 Percocet 5/325 Tab* PO 2 tab Q4H PRN Administration PAIN - MODERATE TO SEVERE Pharmacy Profile Note 1 note 12/29/16 21:00 12/31/16 21:27 Nicotine Patch Removal Note* PATCH OFF 1 note 2100 YI Administration Temazepam 15 mg 12/29/16 11:45 12/31/16 21:25 Restoril Cap* PO 15 mg BEDTIME PRN Administration INSOMNIA
[2017-01-01] MEDS: Vitamin THERAPEUTIC TAB PO SCH (10:10)
[2017-01-01] MEDS: Nicotine PATCH 14 MG/24 HR* PATCH TRANSDERM SCH (10:11)
[2017-01-01] MEDS: Metoprolol Tartrate TAB* 25 MG PO SCH (10:11)
[2017-01-01] MEDS: Aspirin TAB* 325 MG PO SCH (10:11)
[2017-01-01] MEDS: Magnesium Hydroxide LIQ* 30 ML UDC PO SCH (10:12)
[2017-01-01] MEDS: Docusate CAP* 100 MG PO SCH (10:12)
[2017-01-01] MEDS: oxyCODONE/Acetamin 5/325 MG* TAB PO PRN (10:17)
[2017-01-01 12:13] VITALS: BP 122/66
--- NOTE | 2017-01-01 21:33 | DS ---
DISCHARGE SUMMARY: DATE OF ADMISSION: 12/29/16 DATE OF DISCHARGE: 01/01/17 ATTENDING PHYSICIAN: Joaquim Mcguire MD * (DICTATED BY ELISHA RODRIGUEZ) CHIEF COMPLAINT: 1. Left knee pain. 2. Hypertension. 3. Back pain. 4. Gastroesophageal reflux disease. DISCHARGE DIAGNOSES: 1. Status post left total knee replacement. 2. Hypertension. 3. Back pain. 4. Syncopal episode likely drug-related. PROCEDURE: Left total knee replacement. CONSULTATIONS: 1. Physical Therapy. 2. Occupational Therapy. 3. Hospitalist consult. BRIEF HISTORY: Mr. Nelson is a very pleasant 61-year-old gentleman with a longstanding history of severe osteoarthritis of the left knee, which was not responsive to conservative treatments. The patient elected to undergo a left total knee replacement by Dr. Mcguire on 12/29/16. HOSPITAL COURSE: Mr. Nelson was admitted to [facility] on 12/29/16 where he underwent an uncomplicated left total knee replacement by Dr. Mcguire. Postoperatively, he recovered on the surgical short-stay unit. However, on the morning of 12/30/16 after receiving an IV dose of Dilaudid, he felt lightheaded and faint with hypotension. He was monitored on telemetry as well as had a cardiac workup including EKG, serial troponin's and echocardiogram which showed an ejection fraction of 60% to 65% with bilateral atrial enlargement and hyperdynamic left ventricle. The patient did not have any further episodes of lightheadedness or dizziness and remained normotensive throughout the rest of his stay. His pain was controlled with p.o. oxycodone. He worked well with physical therapy and was cleared for discharge through them. His DVT prophylaxis was managed with aspirin 325 mg b.i.d. and his [place] was removed on postoperative day 1 as he was voiding well on his own without difficulty. By postoperative day 3, he was orthopedically and medically stable for discharge. He can go home with home services and had been cleared by the hospitalist after his near syncopal episode. PHYSICAL EXAMINATION: General: Well appearing, no acute distress. Alert and oriented, resting in chair comfortably. Vital signs: Temperature 99.3, pulse 102, respirations 16, blood pressure 128/62, pulse oxygenation 96% on room air. MSK: The dressing was removed from the left knee. The incision was clean, dry and intact with carlos in place. Neosporin was placed over the incision with gauze and an Reji bandage. There is positive dorsiflexion and plantar flexion bilaterally with a negative Homans' sign bilaterally, positive for moderate nonpitting edema in the left lower extremity. Neurovascular: Intact with sensation intact to light touch over bilateral lower extremities and posterior tibial pulses 2+ bilaterally. LABORATORY DATA/IMAGING DATA: On date of discharge, H and H of 10.1 and 29. Postoperative radiographs show a knee arthroplasty in good alignment with no sign of fracture. DISCHARGE MEDICATIONS: 1. Tylenol 650 mg every 4 fours as needed for pain. 2. Aspirin 325 mg p.o. b.i.d. x3 weeks. 3. Colace 100 mg p.o. b.i.d. 4. Pepcid 20 mg one tablet p.o. q.a.m. 5. Metoprolol 25 mg p.o. q.a.m. 6. Omeprazole 20 mg p.o. q.a.m. 7. Oxycodone 5 to 10 mg q.4 hours p.r.n. pain. 8. Aleve 440 mg p.o. q.a.m. p.r.n. 9. Loperamide 8 mg p.o. q.a.m. 10. Losartan 100 mg p.o. q.a.m. 11. Tramadol 50 to 100 mg p.o. q.6 hours p.r.n. not to be taken with oxycodone. CONDITION ON DISCHARGE: Stable. DISCHARGE INSTRUCTIONS: Mr. Nelson is a very pleasant 61-year-old gentleman status post left total knee replacement on postoperative day #3, which is uncomplicated. He is orthopedically and medically stable for discharge. He can go home with home services. His labs and vital signs are stable. He will restart his home medications. He will take aspirin 325 mg p.o. b.i.d. for DVT prophylaxis. He will remain weightbearing as tolerated on the left lower extremity. He will have home physical therapy twice a week and visiting home nursing services who will remove the carlos in approximately 10 to 14 days. He will take oxycodone for pain control and Colace up to 3 times a day for constipation. He will follow up with Dr. Mcguire in approximately 4 weeks for repeat evaluation. He was instructed to go immediately to the ER should he develop chest pain, shortness of breath, or lightheadedness. He was instructed to call us with any fevers, chills, increasing redness or drainage from the incision site. ELISHA RODRIGUEZ [id number]/[facility] #: [id number] [place]
== END 2017-01-01 13:48 | disposition home health service (06) | DRG 302 ==
LOC: AA 06:02 → SSU 13:06
PROVIDERS: ADMIT Orthopaedic Surgery; ATTEND Orthopaedic Surgery
PROC: 0SRD0J9 Replacement of Left Knee Joint with Synthetic Substitute, Cemented, Open Approach (ICD-10-PCS; principal; 2016-12-29 07:30)
DX: M17.12 Unilateral primary osteoarthritis, left knee (principal); I95.9 Hypotension, unspecified; D62 Acute posthemorrhagic anemia; Z68.42 Body mass index [BMI] 45.0-49.9, adult; I10 Essential (primary) hypertension; M54.9 Dorsalgia, unspecified; K21.9 Gastro-esophageal reflux disease without esophagitis; F17.200 Nicotine dependence, unspecified, uncomplicated; E66.9 Obesity, unspecified; N40.0 Benign prostatic hyperplasia without lower urinary tract symptoms; M21.162 Varus deformity, not elsewhere classified, left knee; R55 Syncope and collapse; T40.2X5A Adverse effect of other opioids, initial encounter; Y92.9 Unspecified place or not applicable; Z79.82 Long term (current) use of aspirin; Z88.0 Allergy status to penicillin; Z88.8 Allergy status to other drugs, medicaments and biological substances; Z88.5 Allergy status to narcotic agent
CPT/HCPCS: 36415; 80048; 84484; 85014; 85018; 85025; 86703; 86707; 86803; 86850; 86900; 86901; 87350; 93005; 93306; 94760; A9270-GY; C1776; C8929; J0690; J1100; J1170; J2250; J2405; J2704; J3010; J7615

== ENCOUNTER 2017-03-02 05:56 | Inpatient (IN) | payer BC ==
--- NOTE | 2017-02-15 11:26 | HP ---
HISTORY AND PHYSICAL: DATE OF ADMISSION: 03/02/17 Entering [facility] on 03/02/17. CHIEF COMPLAINT: Right knee pain, swelling, and deformity. HISTORY OF PRESENT ILLNESS: The patient has had severe arthritis of both of his knees for many years. His left total knee replacement was done on 12/29/16 , and he has been recovering from that without complications, and he is now admitted for right total knee replacement for continued severe pain and deformity. In the interval between the left knee and now he has been eating and drinking without difficulty. He has had no fevers or chills. No shortness of breath. He has no history of DVT or pulmonary embolism and no chest pain. No heart attack. No cancers. He did have an adverse reaction to Dilaudid during the hospitalization for his left total knee replacement. ALLERGIES: SEASONAL and no other allergies to drugs other than the adverse reaction to DILAUDID. PHYSICAL EXAMINATION GENERAL: He is overweight. He is not acutely distressed. Walking gait antalgic on the right with right knee varus. VITAL SIGNS: Height 66 inches, weight 285, blood pressure 126/70, the temp is 98 degrees. HEAD: NC/AT. LUNGS: Clear bilaterally. HEART: Regular. S1 and S2 normal. No murmurs or gallops. ABDOMEN: Round, soft, and nontender. There is no organomegaly. EXTREMITIES: Left knee, well healed surgical scar. No redness or fluctuance. Left knee extension -2 degrees, flexion 110, satisfactory overall alignment. He is able to walk on his toes and his heels. Right knee extension -5, flexion 95 to 100 degrees. Right knee has some tenderness medially. Stable MCL and LCL. Posterior tibial pulses 2+ on the right. The right thigh and calf are soft and nontender. NEUROLOGIC: Cranial nerves are grossly intact. DIAGNOSTIC STUDIES/LAB DATA: X-rays, severe arthritis of the right knee. IMPRESSION: Severe arthritis of the right knee with varus deformity, lack of full straightening. PLAN: Right total knee replacement. We will plan to use the [facility] [place] for the perioperative prophylaxis. [id number]/[facility] #: [id number] MTDD
[~2017-03-02 05:56] MED LIST changes: -Buffered Lidocaine 0.9% SYRIN* 5 ML/SYR SYRINGE ONE; -Dexamethasone IV* 4 MG/ML 1 ML (4 MG) IV SLOW PU ONE; -Dexamethasone IV* 4 MG/ML 1 ML (4 MG) ONE; -ceFAZolin 2 GM PREMIX (*) 50 ML IVPB ONE
[2017-03-02] MEDS ORDERED: Buffered Lidocaine 0.9% SYRIN* 5 ML/SYR SYRINGE ONE (06:08)
[2017-03-02] MEDS ORDERED: ceFAZolin 2 GM PREMIX (*) 2 GM/50 ML BAG IVPB ONE (06:08)
[2017-03-02] MEDS ORDERED: fentaNYL* 50 MCG/ML 2 ML VIAL (100 MCG VIAL) ONE (07:14)
[2017-03-02] MEDS ORDERED: Midazolam* 1 MG/ML 2 ML VIAL (2 MG) ONE (07:14)
[2017-03-02] MEDS ORDERED: Morphine PF AMP (0.5MG/ML)* 5 MG/10 ML AMP ONE (07:14)
[2017-03-02] MEDS ORDERED: ceFAZolin 1 GM ADVAN(*) 1 GM ADDV.VIAL IVPB ONE (07:15)
[2017-03-02] MEDS ORDERED: Bupivacaine 0.5% SDV PF* 30 ML VIAL ONE ×2 (07:34→08:20)
[2017-03-02] MEDS ORDERED: Bupivacaine 0.25% SDV* 30 ML ONE (08:20)
[2017-03-02] MEDS ORDERED: Propofol* 10 MG/ML 20 ML BTL IV PUSH ONE ×3 (08:20→09:19)
[2017-03-02] MEDS ORDERED: Bupivacaine 0.25% EPI 200,000* 30 ML SDV ONE (08:21)
[2017-03-02] MEDS ORDERED: Lidocaine 1% MPF wEPI 200,000* 30 ML SDV ONE (08:36)
[2017-03-02] MEDS ORDERED: Acetaminophen TAB* 325 MG PO PRN ×2 (11:07→11:18)
[2017-03-02] MEDS ORDERED: DiMENhydriNATE IV* 50 MG/ML VIAL IV PUSH PRN (11:07)
[2017-03-02] MEDS ORDERED: Ondansetron INJ* 2 MG/ML VIAL IV PRN ×2 (11:07→11:18)
[2017-03-02] MEDS ORDERED: PROCHLORPERAZINE INJ 5 MG/ML 2 ML VIAL IV PRN (11:07)
[2017-03-02] MEDS ORDERED: diPHENhydraMINE IV* 50 MG/ML 1 ml VIAL (BENADRYL) IV PRN (11:07)
[2017-03-02] MEDS ORDERED: Nalbuphine* 20 MG/ML 1 ML VIAL IV PRN (11:07)
[2017-03-02] MEDS ORDERED: Naloxone* 0.4 MG/ML 1 ML VIAL IV PRN (11:07)
[2017-03-02] MEDS ORDERED: oxyCODONE/Acetamin 5/325 MG* TAB PO PRN ×2 (11:18)
[2017-03-02] MEDS ORDERED: Famotidine TAB* 20 MG PO PRN (11:30)
--- NOTE | 2017-03-02 12:52 | RAD ---
Indication: Immediate postop exam following RIGHT total knee replacement. Comparison: January 29, 2017 radiographs. Technique: Portable AP and cross table lateral views RIGHT knee. Report: Status post total knee replacement. Anterior cutaneous carlos and surgical drain in place. Post-op fluid and gas is seen in the joint space and anterior subcutaneous tissues. Alignment is anatomic. No periprosthetic fracture evident. IMPRESSION: Unremarkable immediate postoperative appearance following RIGHT knee replacement.
[2017-03-02] MEDS: oxyCODONE/Acetamin 5/325 MG* TAB PO PRN ×3 (13:00→21:06)
[2017-03-02] MEDS ORDERED: Mouth Piece, Nicotine* 1 EACH CARTRIDGE ONE (13:57)
[2017-03-02] MEDS: Nicotine PATCH 21 MG/24 HR* PATCH TRANSDERM SCH (13:58)
[2017-03-02] MEDS: Nicotine Inhaler* 10 MG AMP INH PRN ×2 (14:00→21:11)
[2017-03-02] MEDS ORDERED: HYDROmorphone INJ* 1 MG/ML CARPUJECT SYRINGE ONE (16:35)
[2017-03-02] MEDS: ceFAZolin 1 GM VIAL(*) 1 GM in D5W 50 ML BAG* 50 ML IVPB SCH ×2 (16:40→23:56)
--- NOTE | 2017-03-02 17:52 | PN ---
Progress Note - Progress Note Date of Service: 03/02/17 Note: Patient seen at bedside to assess wound vac as nursing report it as very full with air and blood. I released the valve to remove air and resealed the device without complication. Dressing was CDI. Per nursing patient has been very restless and pulled on his stinson resulting in a small amount of red tinged urine. Patient confirms he pulled on the stinson which is not currently painful. Urine in the tube is clear/yellow.
[2017-03-02] MEDS: Magnesium Hydroxide LIQ* 30 ML UDC PO SCH (19:55)
[2017-03-02] MEDS: Docusate CAP* 100 MG PO SCH (19:55)
[2017-03-02] MEDS: Nicotine Patch Removal NOTE PATCH OFF SCH (21:08)
[2017-03-02] MEDS: HYDROmorphone INJ* 2 MG/ML CARPUJECT SYRINGE IV SLOW PU PRN (22:42)
[2017-03-03] MEDS: oxyCODONE/Acetamin 5/325 MG* TAB PO PRN ×7 (00:03→22:16)
--- NOTE | 2017-03-03 01:47 | OP ---
CC: Dr. Mcmahan * DATE OF OPERATION: 03/02/17 - ROOM #343 DATE OF : [birth year] - AGE: 61. SURGICAL CARE: Right knee. SURGEON: Joaquim Mcguire MD ASSISTANTS: ELISHA Parks; Christy Hernandez, rn surgical pcu. ANESTHESIOLOGIST: Dr. Karen Morelos. ANESTHESIA: Spinal with Duramorph and IV sedation. PRE-OP DIAGNOSIS: Severe arthritis of the right knee with varus malalignment. POST-OP DIAGNOSIS: Severe arthritis of the right knee with varus malalignment. OPERATIVE PROCEDURE: Right total knee replacement, the [place] Persona knee was utilized to size 9 femur, 35 patella size F tibia and a 10 articular surface. COMPLICATIONS: There are no complications. DRAINS: Two drains right knee at the end of the case. BLOOD LOSS: 250 mL, replaced with crystalloid fluids. CONDITION: Stable to the recovery room. INDICATION: Severe arthritis of the right knee with deformity. He has had arthritis of this degree for many years. He has failed nonoperative treatment. His left knee was done earlier this year. DESCRIPTION OF PROCEDURE: The patient was brought to the operating room and placed on the operating room table in a supine position following the administration of the block anesthesia, right leg by Dr. Morelos, then the spinal anesthetic was administered in the sitting position. He was returned to the supine position. A Haywood catheter was inserted and the right leg was wrapped with the proximal thigh tourniquet. The right leg was given a preliminary chlorhexidine prep and then a formal prep from the tourniquet to the tips of the toes and the knee was draped free and carefully sealed off in usual manner for surgical care of the knee for arthroplasty. After prepping and draping and sealing off, we did our universal protocol time-out confirming Kenny Nelson and a plan for right total knee replacement. We all agreed and we proceeded. A tourniquet was utilized just at the cleanup and cementing phase of the case and for the most of the case, the surgical care was done with the knee acutely flexed with the right foot on a padded foot piece. The skin incision went from 2 fingerbreadths proximal to the superior pole of the patella to the medial aspect of the tibial tubercle. Careful hemostasis was checked and achieved throughout the case utilizing electrocautery. The skin and subcutaneous tissues were divided down to the prepatellar bursa. The prepatellar bursa was traversed and the knee was entered medial parapatellar dividing the soft tissues on the tibia down to the bone just medial to the tibial tubercle then up to the joint line and then up to the quad tendon. The quad tendon was divided at the junction of the rectus femoris and the vastus medialis staying as close to the vastus medialis muscle as possible going 3 to 4 cm proximal to the superior pole of the patella. The knee had clear goldish synovial fluid, it was abundant. It was completely eburnated on the medial femoral condyle, medial tibial plateau was scooping out of the medial tibial plateau large osteophytes on both osteophytes on the intercondylar notch, osteophytes on the trochlea and the patella. The anteromedial soft tissues on the tibia were elevated subperiosteally going around to the deep MCL and then to the posterior medial corner of the knee. Large osteophyte on the tibial plateau was also excised. We removed the remains of the medial meniscus anteriorly, removed the synovium around the patella, synovectomy was completed and the suprapatellar pouch where he had markedly thickened synovial lining. The patella was made so it could be everted. The ACL and PCL were uplifted from their femoral origins and the tibia was made so it could be subluxated forward onto the femur and the PCL was excised. Great care was taken while working in the posterior knee especially on the posterior side of the PCL. The lateral meniscus was carefully excised keeping careful hemostasis at its periphery. The distal anterior femur was exposed subperiosteally for referencing and measuring. Once we had this exposure, then the proximal tibial cut was made first. Our goal with the tibial cut was to have a tibial surface that would be perpendicular to the long axis of the tibia and have a slight posterior slope. After this cut was completed, the tibia was re-cut for 2 more mm to achieve a better medial surface. The femoral intramedullary drill was utilized. The distal femoral cutting guide was applied on to with 6 degrees of valgus for right knee and the distal femoral cuts were completed and at this point, we had a nice extension gap of 10. The femur was measured for a size 9, the external rotation had been put into previously and the 9 cutting guide was applied on the anterior posterior and chamfering cuts were completed. We then finished removal of the posterior horn lateral meniscus, PCL posterior medial meniscus and at this stage, we had nice ligamentous balance and 90 degrees of flexion with a 10 mm block and extension as stated above. The femur was completed with intercondylar cut out. The tibia was then completed for a size F and the knee was articulated and extended with the size F femur 10 articular surface and the size 9 femur with full knee extension, stable ligaments in extension and stable ligaments in 90 degrees of flexion. The patella was cut flat. A 35 was chosen. Three drill holes were made and these were undercut for optimal cemented interdigitation, a lateral release was not necessary. The knee was then cleaned entirely in extension with pulsed saline 2 L. The knee was then cleaned in flexion with bony services exposed and the pulsed saline. All surfaces were cleaned and then dried carefully. The cement was mixed and the components were cemented into position patella followed by tibia followed by femur. Each component was impacted. Excess cement was removed and the knee was articulated and extended during the final hardening. After hardening, we checked posteriorly for bleeding points and retained cement , the tourniquet was deflated. Hemostasis checked and achieved with electrocautery during the closure. Elizabeth-capsular tissues were infiltrated with Xylocaine 1% with epinephrine posterior medially, medially and laterally and then the closure was continued with closure of the quad mechanism, quad tendon with interrupted #1 Vicryls in a [id number] fashion. The same with the medial retinaculum and distal that we used 0 Vicryl interrupted and running. The deep fascia was closed with interrupted 0 Polysorb and then of the superficial subcu, we used 3-0 Vicryl. We irrigated several times during closure. We put 2 drains and brought them off the superolateral suprapatellar pouch and the skin was then carefully closed with carlos. Also, during closure , we extended the knee completely and flexed knee past 130 degrees 5 to 6 times. After carlos then we washed and dried the skin and then covered with Betadine soaked release, sterile gauze on the surgery and the drain sites then sterile Webril, cryotherapy cuff, ABD pads, and a 6-inch Reji bandage loosely applied. The pulse was 2+ at the end of the case posterior tibial and the patient was returned to the recovery room in stable and satisfactory condition, having tolerated the procedure very well. [id number]/[facility] #: [id number] [facility]
[2017-03-03] MEDS: diPHENhydraMINE PO* 25 MG PO PRN (02:01)
[2017-03-03] MEDS: HYDROmorphone INJ* 2 MG/ML CARPUJECT SYRINGE IV SLOW PU PRN ×5 (04:41→22:23)
[2017-03-03 05:30] LABS: Hematocrit 32 % (42-52); Hemoglobin 10.5 g/dl (14.0-18.0)
[2017-03-03 05:47] LABS: BUN/Creatinine Ratio 20.2 (8-20); Calcium 8.4 mg/dL (8.6-10.3); EGFR African American 119.9 (>60); EGFR Non-African American 93.2 (>60); Potassium 3.9 mmol/L (3.5-5.0)
[2017-03-03] MEDS: Nicotine PATCH 21 MG/24 HR* PATCH TRANSDERM SCH ×2 (06:53→09:26)
--- NOTE | 2017-03-03 07:31 | PN ---
Progress Note - Progress Note Date of Service: 03/03/17 Note: 98.8 F, VSS. X-ray right knee post op, all satisfactory. Intake and output are satisfactory. 2 drains removed right knee. Dressing changed and surgery is leaking mid wound and the drain sites. Able to SLR right and active movements right ankle up and down. PT pulse is 2 plus. Hct is 32% Imp Stable and wound drainage is present. Will follow closely. Plans: Dressing changes as needed. Up with walker, TKR protocol.
[2017-03-03] MEDS: ceFAZolin 1 GM VIAL(*) 1 GM in D5W 50 ML BAG* 50 ML IVPB SCH (08:19)
[2017-03-03] MEDS: Losartan TAB* 25 MG PO SCH (09:27)
[2017-03-03] MEDS: Aspirin TAB* 325 MG PO SCH (09:27)
[2017-03-03] MEDS: Metoprolol Tartrate TAB* 25 MG PO SCH (09:27)
[2017-03-03] MEDS: Docusate CAP* 100 MG PO SCH ×2 (09:28→20:16)
[2017-03-03] MEDS: Magnesium Hydroxide LIQ* 30 ML UDC PO SCH ×2 (09:28→20:03)
[2017-03-03] MEDS ORDERED: Cyclobenzaprine TAB* 10 MG PO PRN (11:55)
[2017-03-03] MEDS: oxyCODONE TAB* 5 MG TAB PO PRN ×3 (12:03→23:53)
[2017-03-03] MEDS: Omeprazole CAP* 20 MG PO SCH (12:03)
--- NOTE | 2017-03-03 15:03 | PN ---
Progress Note - Progress Note Date of Service: 03/03/17 SOAP: Subjective: []Patient seen OOB in chair. His pain was well controlled throughout the afternoon until physical therapy, which he finished 15 minutes ago. Pain is now a 6/10. He denies any dizziness, shortness of breath, chest pain or obvious bleeding of his operative site. Objective: [] General: Well appearing, no acute distress. RLE: Saw patient both this morning and this afternoon. On both occasions his dressing was clean, dry and intact. He was wearing his cryo unit and sitting in the chair BL LE: calves supple and nontender without erythema. Mild edema of RLE. No palpable cords. Sensation intact distally. 2+ DP/PT. DF/PF intact. Assessment: []POD 1 s/p right total knee arthroplasty 03/02, Dr. Mcguire. Plan: []WBAT Dressing changes as needed Up with walker, PT/OT
[2017-03-03] MEDS ORDERED: Famotidine TAB* 20 MG PO ONE (21:00)
[2017-03-03] MEDS: Nicotine Patch Removal NOTE PATCH OFF SCH (22:26)
[2017-03-04] MEDS: oxyCODONE/Acetamin 5/325 MG* TAB PO PRN ×5 (02:23→20:03)
[2017-03-04] MEDS: oxyCODONE TAB* 5 MG TAB PO PRN ×5 (05:29→22:17)
[2017-03-04 07:04] LABS: Hematocrit 28 % (42-52); Hemoglobin 9.5 g/dl (14.0-18.0)
--- NOTE | 2017-03-04 07:13 | PN ---
Progress Note - Progress Note Date of Service: 03/04/17 Note: 99 degrees F, P 95, VSS AM labs are pending. I and O are satisfactory Awake, alert, cooperative, got some sleep, and breathing easily. Able to do a leg raise on the right. Right knee this AM is swollen, clean, and dry. All washed with soap and water and dressed with betadine/talfa, gauze, and kat. Pulse DP is 2 plus. Imp: Stable. Acute blood loss anemia. Plans: Proceed with TKR rehab protocol. Continue surgery observation.
[2017-03-04] MEDS: Docusate CAP* 100 MG PO SCH ×2 (08:36→20:03)
[2017-03-04] MEDS: Aspirin TAB* 325 MG PO SCH (08:36)
[2017-03-04] MEDS: Metoprolol Tartrate TAB* 25 MG PO SCH (08:37)
[2017-03-04] MEDS: Losartan TAB* 25 MG PO SCH (08:37)
[2017-03-04] MEDS: Omeprazole CAP* 20 MG PO SCH (08:38)
[2017-03-04] MEDS: Nicotine PATCH 21 MG/24 HR* PATCH TRANSDERM SCH (08:38)
[2017-03-04] MEDS: HYDROmorphone INJ* 2 MG/ML CARPUJECT SYRINGE IV SLOW PU PRN (08:43)
[2017-03-04] MEDS: Magnesium Hydroxide LIQ* 30 ML UDC PO SCH ×2 (10:15→20:03)
[2017-03-04] MEDS: Nicotine Inhaler* 10 MG AMP INH PRN (18:23)
[2017-03-04] MEDS: Nicotine Patch Removal NOTE PATCH OFF SCH (20:10)
[2017-03-04] MEDS: diPHENhydraMINE PO* 25 MG PO PRN (22:18)
[2017-03-05] MEDS: oxyCODONE TAB* 5 MG TAB PO PRN ×2 (04:03→09:51)
[2017-03-05 06:48] LABS: Hematocrit 28 % (42-52); Hemoglobin 9.5 g/dl (14.0-18.0)
[2017-03-05] MEDS: Magnesium Hydroxide LIQ* 30 ML UDC PO SCH ×2 (07:36→09:00)
[2017-03-05] MEDS: oxyCODONE/Acetamin 5/325 MG* TAB PO PRN ×2 (07:40→12:41)
[2017-03-05] MEDS: Docusate CAP* 100 MG PO SCH (07:40)
[2017-03-05] MEDS: Nicotine PATCH 21 MG/24 HR* PATCH TRANSDERM SCH (07:40)
[2017-03-05] MEDS: Losartan TAB* 25 MG PO SCH (07:40)
[2017-03-05] MEDS: Omeprazole CAP* 20 MG PO SCH (07:40)
[2017-03-05] MEDS: Metoprolol Tartrate TAB* 25 MG PO SCH (07:40)
[2017-03-05] MEDS: Aspirin TAB* 325 MG PO SCH (07:40)
[2017-03-05] MEDS: diPHENhydraMINE PO* 25 MG PO PRN (09:52)
--- NOTE | 2017-03-05 11:27 | PN ---
Progress Note - Progress Note Date of Service: 03/05/17 SOAP: Subjective: 61 y/o male s/p right total knee arthroplasty with Dr. Mcguire. Patient eager for D/C, discussed elevated HR, patient feels due to pain being uncontrolled, concerned as had increased itching with oxycodone after last surgery. no SOB, chest pain. Objective: General- Well appearing, NAD AO MSK- incision c/d/i, old dressing removed, new dressing placed, neg homans b/l, SITLT b/l, + DF/PF b/l, mild edema R LEs Vital Signs Temp 98.9 F 03/05/17 07:39 Pulse 113 03/05/17 07:39 Resp 18 03/05/17 09:52 BP 141/62 03/05/17 07:39 Pulse Ox 97 03/05/17 07:39 Intake & Output 03/04/17 03/05/17 03/05/17 18:59 06:59 18:59 Intake Total 3050 1320 Output Total 1250 950 850 Balance 1800 370 -850 Intake: Oral 3050 1320 Output: Urine 1250 950 850 Other: Date of Last Bowel 03/05/17 Movement # Bowel Movements 0 1 Estimated Stool Amount Small Assessment: 61 y/o male s/p right total knee arthroplasty with Dr. Mcguire. Plan: - DVT prophylaxis- ASA at home - Pain control- will change patient to [place] to go home with as has had in past without SE with oxycodone as needed for increased pain/ uncontrolled pain and motrin [id number]. - Continue PT - FOllow up with DR. Mcguire. Acetaminophen (Tylenol Tab*) 650 mg PO Q4H PRN PRN Reason: pain and temp Aspirin (Aspirin Tab*) 325 mg PO DAILY [facility] Last Admin: 03/05/17 07:40 Dose: 325 mg Cyclobenzaprine HCl (Flexeril Tab*) 10 mg PO TID PRN PRN Reason: SPASMS Last Admin: 03/03/17 13:08 Dose: 10 mg Diphenhydramine HCl (Benadryl Po*) 25 mg PO Q6H PRN PRN Reason: itching and insomnia Last Admin: 03/05/17 09:52 Dose: 25 mg Docusate Sodium (Colace Cap*) 100 mg PO BID [facility] Last Admin: 03/05/17 07:40 Dose: 100 mg Famotidine (Pepcid Tab*) 20 mg PO QAM PRN PRN Reason: INDIGESTION Last Admin: 03/03/17 09:27 Dose: 20 mg Hydromorphone HCl (Dilaudid Inj*) 0.4 mg IV SLOW PU Q4H PRN PRN Reason: PAIN - BREAKTHROUGH Last Admin: 03/04/17 08:43 Dose: 0.4 mg Losartan Potassium (Cozaar Tab*) 100 mg PO QAM [facility] Last Admin: 03/05/17 07:40 Dose: 100 mg Magnesium Hydroxide (Milk Of Magnesia Liq*) 30 ml PO BID [facility] Last Admin: 03/05/17 09:00 Dose: 30 ml Metoprolol Tartrate (Lopressor Tab*) 25 mg PO QAM [facility] Last Admin: 03/05/17 07:40 Dose: 25 mg Nicotine (Nicotine Patch 21 Mg/24 Hr*) 1 patch TRANSDERM DAILY [facility] Last Admin: 03/05/17 07:40 Dose: 1 patch Nicotine (Nicotine Inhaler*) 10 mg INH Q2H PRN PRN Reason: CRAVINGS Last Admin: 03/04/17 18:23 Dose: 10 mg Omeprazole (Prilosec Cap*) [facility] [place] Last Admin: 03/05/17 07:40 Dose: 20 mg Ondansetron HCl (Zofran Inj*) 4 mg IV Q6H PRN PRN Reason: nausea Oxycodone HCl (Roxycodone Tab*) 10 mg PO Q4H PRN PRN Reason: PAIN - MODERATE TO SEVERE Last Admin: 03/05/17 09:51 Dose: 10 mg Oxycodone/Acetaminophen (Percocet 5/325 Tab*) 1 tab PO Q3H PRN PRN Reason: PAIN - MODERATE Oxycodone/Acetaminophen (Percocet 5/325 Tab*) 2 tab PO Q3HR PRN PRN Reason: PAIN - SEVERE Last Admin: 03/05/17 07:40 Dose: 2 tab Pharmacy Profile Note (Nicotine Patch Removal Note*) 1 note PATCH OFF 2100 [facility] Last Admin: 03/04/17 20:10 Dose: 1 note
[2017-03-05 12:00] VITALS: BP 123/69
--- NOTE | 2017-03-06 01:19 | DS ---
DISCHARGE SUMMARY: DATE OF ADMISSION: 03/02/17 DATE OF DISCHARGE: 03/05/17 ATTENDING PHYSICIAN: Dr. Mcguire * (DICTATED BY ELISHA RODRIGUEZ) CHIEF COMPLAINT: 1. Right knee pain. 2. GERD. 3. Hypertension. DISCHARGE DIAGNOSES: 1. Status post right total knee arthroplasty. 2. Hypertension. 3. Gastroesophageal reflux disease. PROCEDURE: Right total knee arthroplasty which was uncomplicated. CONSULTATIONS: 1. Physical Therapy. 2. Occupational Therapy. BRIEF HISTORY: Mr. Nelson is a very pleasant 61-year-old gentleman with severe end-stage degenerative osteoarthritis of the right knee who failed conservative treatment and elected to undergo a right total knee arthroplasty on 03/02/[address] Mcguire. HOSPITAL COURSE: Mr. Nelson was admitted to [facility] on 03/02/17 , where he underwent a right total knee arthroplasty, which was uncomplicated. Postoperatively, he recovered on the surgical short stay unit. On post- operative day #1, his postoperative drains were removed without difficulty and his Haywood was removed on postoperative day #2 with the patient being able to void on his own. His pain was controlled with p.o. Percocet for 24 hours prior to discharge as well, and restarting on his home medications with no difficulty. He was able to bear weight as tolerated on the right lower extremity and advanced appropriately with physical therapy and occupational therapy. His DVT was managed in house with Lovenox and aspirin 325 mg. By postoperative #3, he was orthopedically and medically stable for discharge to go home with home services. PHYSICAL EXAMINATION: General Appearance: In no acute distress, alert and oriented, sitting comfortably in chair. Vital Signs: Temperature 98.9, pulse 113 taken at 7:39, recheck at 9:30 had a pulse rate of 86, respirations 18, blood pressure 141/62, pulse oxygenation 97% on room air. Examination of the right lower extremity showed the incision to be clean, dry and intact when the old dressing was removed and new dressing was placed without difficulty. Negative Homans' sign bilaterally. Sensation intact to light touch bilaterally. Passive dorsiflexion and plantarflexion bilaterally. Mild edema noted in the right lower extremity. No signs of erythema throughout the incision. LABORATORY DATA: On date of discharge showed an H and H of 9.5 and 28. Postoperative knee x-rays obtained on 03/02/17 show an unremarkable immediate postoperative appearance following a right total knee replacement. DISCHARGE MEDICATIONS: 1. Aspirin 325 mg p.o. b.i.d. 2. Cyclobenzaprine 10 mg p.o. t.i.d. p.r.n. 3. Colace 100 mg p.o. b.i.d. 4. Pepcid 20 mg 1 tablet p.o. q.a.m. 5. Losartan 100 mg p.o. q.a.m. 6. Metoprolol 25 mg p.o. q.a.m. 7. Oxycodone 5 mg p.o. q.6 hours p.r.n. for breakthrough pain. 8. [place] 5/325 one to two tablets every 4 to 6 hours as needed for pain. 9. Loperamide 8 mg p.o. q.a.m. p.r.n. 10. Ibuprofen 600 mg p.o. q.8 hours alternating with aspirin. CONDITION ON DISCHARGE: Stable. DISCHARGE INSTRUCTIONS: Mr. Nelson is a very pleasant 61-year-old gentleman, status post right total knee arthroplasty which was uncomplicated. On postoperative day #3, he is orthopedically and medically stable for discharge to go home with home services. His labs and vital signs are stable. He will restart his home medications. He will take an aspirin 325 mg p.o. b.i.d. for DVT prophylaxis. He will have visiting home nurse services and home PT for wound evaluation and continued physical therapy. He will remain weightbearing as tolerated on the right lower extremity. He will take [place] as needed for pain control with oxycodone 5 mg as needed for breakthrough pain. He will take Colace up to 3 times a day for constipation. He will follow up with Dr. Mcguire in approximately 3 to 4 weeks for incision check and to continue to see his progress. Should he develop fever, increasing pain or redness, he is to call the office immediately. Should he develop chest pain or shortness of breath, he is to go to the ER. ELISHA RODRIGUEZ [id number]/[facility] #: [id number] [place]
== END 2017-03-05 13:25 | disposition home health service (06) | DRG 302 ==
LOC: AA 05:56 → SSU 12:26
PROVIDERS: ADMIT Orthopaedic Surgery; ATTEND Orthopaedic Surgery
PROC: 0SRC0J9 Replacement of Right Knee Joint with Synthetic Substitute, Cemented, Open Approach (ICD-10-PCS; principal; 2017-03-02 07:30)
DX: M17.11 Unilateral primary osteoarthritis, right knee (principal); D62 Acute posthemorrhagic anemia; Z68.41 Body mass index [BMI] 40.0-44.9, adult; K21.9 Gastro-esophageal reflux disease without esophagitis; I10 Essential (primary) hypertension; Z79.82 Long term (current) use of aspirin; Z88.6 Allergy status to analgesic agent; J30.2 Other seasonal allergic rhinitis; M21.161 Varus deformity, not elsewhere classified, right knee; R45.1 Restlessness and agitation; E66.9 Obesity, unspecified; F17.210 Nicotine dependence, cigarettes, uncomplicated; M25.761 Osteophyte, right knee
CPT/HCPCS: 36415; 62323; 80048; 85014; 85018; 86850; 86900; 86901; 88305; 88311; 94760; A9270-GY; C1776; J0690; J1170; J2001; J2250; J2704; J3010

== ENCOUNTER 2018-06-03 05:50 | Emergency (ER) | payer BC ==
[2018-06-03] MEDS ORDERED: Phenylephrine 0.25% NASAL* PUFF BOTH NARES ONE (05:59)
--- NOTE | 2018-06-03 06:14 | ED ---
Throat Pain/Nasal Congestion - HPI Summary HPI Summary: Pt. is a 62 y.o male who presents to the ER for epistaxis x 2 days. Pt. states he started having a nose bleed yesterday. Pt. states bleeding seemed to be coming from left nare primarily and then went into right nare and down throat. Pt. states he held pressure and bleeding eventually subsided. Pt. states he woke up this morning and bleeding returned and he was unable to get it to stop with pressure and presents to the ER. Pt. denies CP, SOB, lightheadedness, dizziness, He is not anticoagulated. Pt. states he had an issue with nosebleeds as a child but states he has not had a bleed in roughly 20 years. Sxs are moderate in severity. No current modifying factors. Pt. denies trauma. He does note sinus infection last week with increased nasal blowing. Hx of HTN and is on numerous medications. - History of Current Complaint Chief Complaint: EDEpistaxis Time Seen by Provider: 06/03/18 06:00 Hx Obtained From: Patient - Allergies/Home Medications Allergies/Adverse Reactions: Allergies Allergy/AdvReac Type Severity Reaction Status Date / Time Adhesive Tape Allergy Severe Rash Verified 06/03/18 05:56 hydromorphone Allergy Unknown Verified 06/03/18 07:48 Reaction Details morphine Allergy Vomiting Verified 06/03/18 07:47 Penicillins Allergy Rash Verified 06/03/18 07:44 Home Medications: Home Medications Ibuprofen [Ibuprofen 200 MG] 400 mg PO Q6HR 06/03/18 [History Confirmed 06/03/18 ] Losartan Potassium 100 mg PO DAILY 06/03/18 [History Confirmed 06/03/18] Montelukast Sodium 10 mg PO DAILY 06/03/18 [History Confirmed 06/03/18] PMH/Surg Hx/FS Hx/Imm Hx Previously Healthy: Yes Endocrine/Hematology History: Denies: Hx Diabetes Cardiovascular History: Reports: Hx Hypertension Denies: Hx Pacemaker/ICD Respiratory History: Reports: Other Respiratory Problems/Disorders - TOBACCO USE GI History: Reports: Hx Gastroesophageal Reflux Disease History: Reports: Other Problems/Disorders - denies enlarged prostate, reports followed by dr ni for PSA tho Denies: Hx Renal Disease Musculoskeletal History: Reports: Hx Arthritis, Other Musculoskeletal History - DDD Sensory History: Reports: Hx Contacts or Glasses - READING GLASSES Denies: Hx Hearing Aid Opthamlomology History: Reports: Hx Contacts or Glasses - READING GLASSES Psychiatric History: Denies: Hx Panic Disorder - Cancer History Hx Chemotherapy: No - Surgical History Surgery Procedure, Year, and Place: BACK SURGERY 1999,[place] Hx Anesthesia Reactions: No Infectious Disease History: No Infectious Disease History: Denies: Traveled Outside the [place] in Last 30 Days - Family History Known Family History: Positive: Diabetes, Non-Contributory - Social History Occupation: Employed Full-time Lives: With Family Alcohol Use: Weekly Alcohol Amount: a few beers on weekends Substance Use Type: Reports: None Hx Tobacco Use: Yes Smoking Status (MU): Current Every Day Smoker Type: Cigarettes Amount Used/How Often: 1/2 PPD Length of Time of Smoking/Using Tobacco: 25 YRS Have You Smoked in the Last Year: Yes Review of Systems Constitutional: Negative Negative: Fever, Chills Positive: Epistaxis, Nasal Discharge Cardiovascular: Negative Negative: Chest Pain Respiratory: Negative Negative: Shortness Of Breath Neurological: Negative Positive: Anxious All Other Systems Reviewed And Are Negative: Yes Physical Exam Triage Information Reviewed: Yes Vital Signs On Initial Exam: Initial Vitals Temp Pulse Resp BP Pulse Ox 99.0 F 93 16 166/106 96 06/03/18 05:50 06/03/18 05:50 06/03/18 05:50 06/03/18 05:50 06/03/18 05:50 Vital Signs Reviewed: Yes Appearance: Positive: Well-Nourished - Pt. sitting on bed holding pressure to nose. Anxious but nontoxic. present. Skin: Positive: Warm, Dry Head/Face: Positive: Normal Head/Face Inspection Eyes: Positive: Normal, EOMI ENT: Positive: Other - Moderate amount of blood from left nare. Mild bleeding from right. Blood in posterior pharynx. Neck: Positive: Supple Neurological: Positive: Normal, CN Intact II-III Psychiatric: Positive: Affect/Mood Appropriate Procedures - Procedure Summary Procedure Summary: 7.5cm anterior/posterior rhino rocket placed in left nare and 3 cc of air used to inflate. Pt. tolerated well. Secured to left cheek. Diagnostics - Vital Signs Vital Signs Temp Pulse Resp BP Pulse Ox 06/03/18 05:50 99.0 F 93 16 166/106 96 - Laboratory Result Diagrams: 06/03/18 06:54 06/03/18 06:54 Lab Statement: Any lab studies that have been ordered have been reviewed, and results considered in the medical decision making process. EENT Course/Dx - Course Course Of Treatment: Pt. presenting with heavy epistaxis from left nare. BP elevated. VS otherwise stable. Given amount of bleeding, decision was made to place rhino rocket. 0645: Re-evaluation: Bleeding is subsiding with rhino rocket. No blood from right nare and posterior pharynx is clear of blood. Will check H and H and basic labs. Labs unremarkable. Pt. has had no further bleeding with rhino rocket. BP has improved. Initially wrote pt. for augmentin rx bu the has a allergy of rash. Verbally switched to doxycycline. Pt. to make an apt. with ENT for Wednesday for packing removal and further care. To avoid touching and blowing nose. To return to ER if bleeding returns. Pt. and understand and agree with plan. - Differential Diagnoses Differential Diagnoses: Epistaxis - Diagnoses Provider Diagnoses: Epistaxis Discharge - Sign-Out/Discharge Documenting (check all that apply): Patient Departure Patient Received Moderate/Deep Sedation with Procedure: No - Discharge Plan Condition: Improved Disposition: HOME Prescriptions: Amoxicillin/Clavulanate TAB* [Augmentin TAB 875*] 875 mg PO BID #20 tab Patient Education Materials: Nosebleed (ED) Forms: *Work Release Referrals: Les Wood MD [Medical Doctor] - Additional Instructions: Call Dr. Wood's office today to schedule an appointment for Wednesday, , for packing removal Take antibiotic as directed Avoid blowing or touching nose Return to ER if bleeding returns or if concerned - Billing Disposition and Condition Condition: IMPROVED Disposition: Home
[2018-06-03] MEDS ORDERED: Phenylephrine 0.25% NASAL* PUFF ONE (07:16)
[2018-06-03 08:13] LABS: ABS Basophils 0 10^3/ul (0-0.2); ABS Eosinophils 0.2 10^3/ul (0-0.6); ABS Lymphocytes 1.4 10^3/ul (1.0-4.8); ABS Monocytes 0.9 10^3/ul (0-0.8); ABS Nucleated RBC 0 10^3/ul; Hematocrit 44 % (42-52); Hemoglobin 14.6 g/dl (14.0-18.0); Lymphocyte % 16.6 %; Mean Corpuscular HGB Conc 33 g/dl (31-36); Mean Corpuscular Hemoglobin 26 pg (27-31); Mean Corpuscular Volume 78 fL (80-94); Nucleated Red Blood Cells % 0; Red Blood Count 5.62 10^6/ul (4.00-5.40); Red Cell Distribution Width 15 % (10.5-15); White Blood Count 8.6 10^3/ul (3.5-10.8)
[2018-06-03 08:19] LABS: Activated Partial Thrombo Time 29.5 seconds (26.0-36.3); INR 0.94 (0.77-1.02)
[2018-06-03 08:20] LABS: Albumin 4.3 g/dL (3.2-5.2); Albumin/Globulin Ratio 1.3 (1-3); BUN/Creatinine Ratio 22.8 (8-20); Calcium 9.1 mg/dL (8.6-10.3); EGFR African American 120.7 (>60); EGFR Non-African American 99.7 (>60); Globulin 3.2 g/dL (2-4); Potassium 4.1 mmol/L (3.5-5.0); Total Bilirubin 0.5 mg/dL (0.2-1.0); Total Protein 7.5 g/dL (6.4-8.9)
[2018-06-03 08:28] VITALS: BP 136/87
[2018-06-03 09:12] LABS: Mean Platelet Volume 7.9 fL (7.4-10.4); Platelet Count 279 10^3/ul (150-450)
== END 2018-06-03 08:35 | disposition home or self-care (01) ==
LOC: ED 05:50
DX: R04.0 Epistaxis (principal); I10 Essential (primary) hypertension; K21.9 Gastro-esophageal reflux disease without esophagitis; F17.210 Nicotine dependence, cigarettes, uncomplicated; Z88.0 Allergy status to penicillin; Z88.5 Allergy status to narcotic agent
CPT/HCPCS: 30901; 36415; 80053; 85025; 85610; 85730; 99283; A9270-GY

== ENCOUNTER → 2018-07-25 05:42 | Day surgery (SDC) | payer BC ==
[~2018-07-25 05:42] MED LIST changes: +Acetaminophen TAB* 325 MG PO PRN; -Buffered Lidocaine 0.9% SYRIN* 5 ML/SYR SYRINGE INTRADERM ONE; +Buffered Lidocaine 1% SYRIN* 1 ML/SYRINGE INTRADERM ONE; +Bupivacaine 0.25% SDV PF* 10 ML VIAL INJ ONE; +Clindamycin 900 MG IVPREMIX(* 900 MG/50 ML SDV IV ONE; +Dexamethasone IV* 4 MG/ML 1 ML (4 MG) ONE; +DiMENhydriNATE IV* 50 MG/ML VIAL IV PUSH PRN; +EPHEDrine (Pressors)* 50 MG/ML VIAL ONE; +HYDROmorphone INJ1* 1 MG/ML SYRINGE IV PRN; +Ketorolac INJ* 30 MG/ML 1 ML VIAL ONE; +Lactated Ringers 1000 ML Bag* 1,000 ML IV SCH; +Lidocaine 2% PF * 5 ML VIAL ONE; +Metoclopramide IV* 5 MG/ML 2 ML VIAL ONE; +Midazolam* 1 MG/ML 2 ML VIAL (2 MG) ONE; +Naloxone* 0.4 MG/ML 1 ML VIAL IV PRN; +Ondansetron INJ* 2 MG/ML VIAL ONE; +Phenylephrine 10 MG/ML VIAL* 1 ML VIAL ONE; +Propofol* 10 MG/ML 20 ML BTL ONE; +fentaNYL* 50 MCG/ML 2 ML VIAL (100 MCG VIAL) ONE; +oxyCODONE TAB* 5 MG TAB ONE
[2018-07-25] MEDS: oxyCODONE TAB* 5 MG TAB PO PRN ×2 (10:43→10:44)
[2018-07-25 11:42] VITALS: BP 146/88
--- NOTE | 2018-07-25 21:28 | OP ---
DATE OF OPERATION: 07/25/18 - [facility] DATE OF : 57 SURGEON: Harvey Rodriguez MD LAND DEVELOPMENT PROJECT MANAGER: ELISHA Parks. An assistant track and field coach was needed for the entirety of the procedure to aid in positioning of the arm and retraction. ANESTHESIOLOGIST: Dr. Jones. ANESTHESIA: General. 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 POST-OP DIAGNOSIS: Right stage 2 scaphoid-lunate advanced collapse wrist. OPERATIVE PROCEDURES: 1. Right wrist proximal row carpectomy with dorsal capsular interposition. Please note that the addition of the dorsal capsular interposition at around substantially more time almost 30 to 45 minutes more time of operative time and substantially more effort and this really resulted in a much more difficult and time consuming procedure. 2. Right wrist posterior interosseous nerve neurectomy. INDICATIONS: Kenny is 62 years old. 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 I talked about risks and benefits, he wants to proceed with surgery. He understands there is a risk of stiffness, risk of dislocation. I told him that if he had a lot of wear on the proximal pole of the capitate, we would have to convert to a 4-corner fusion. He understood this and wished to proceed. ESTIMATED BLOOD LOSS: 5 mL. COMPLICATIONS: None. FINDINGS: See above and below. DESCRIPTION OF PROCEDURE: Kenny was seen in the preoperative holding area. The correct side, site, and procedure were identified. We came back to the operating room where the arm was prepped and draped in the usual fashion. A time-out was performed. The arm was exsanguinated with the Esmarch and the tourniquet was inflated to 250 mmHg. I went ahead and made a dorsal midline incision over the wrist. Dissection was carried down and full-thickness flaps were raised off of the extensor retinaculum and the extensor tendon paratenon. I opened up the retinaculum over the third dorsal compartment. The Savanna's tubercle was excised and some bone wax was placed there. The EPL tendon was transposed. I raised the periosteal flaps out of the way to be able to retract the fourth and fifth dorsal compartment tendons as well as the second dorsal compartment tendons. I then raised the distally based capsular U flap to expose the carpus. The capitolunate joint was examined and I actually thought to get the articular cartilage on the proximal pole of the capitate, it looked pretty good. I, therefore, went ahead and first excised the triquetrum followed by the lunate and lastly the scaphoid. I did use a Steinmann pin to aid in the excision of these bones. Once they were completely excised, we handed them off to the specimen. I then again looked at the proximal pole of the capitate, there was just a little bit of wear, but ultimately I thought it actually looked quite well preserved. I did decide due to just a little bit of wear to do a dorsal capsular interposition. I took a 0.062 K wire and drilled from the dorsal aspect of the capitate by extending out the palmar aspect of the articular surface of the capitate. One drill was placed out the radial aspect and the other out the ulnar aspect. The FlipKey suture passer was used to place the 4-0 Prolene suture to each drill hole. I then sewed two 3-0 Ethibond sutures into the distal aspect of my capsular U flap. I used a 4-0 Prolene to then suture shuttle the 3-0 Ethibond sutures up through the drill holes and out onto the dorsum of the capitate. A free needle was used to sew the tails of the 3-0 Ethibond sutures through the dorsal aspect through the capsular flap. Tension was set and this pulled the dorsal capsule around the proximal pole of the capitate. The sutures were then tied off. I augmented the dorsal capsular interposition with a couple of 3-0 Ethibond sutures, directly sewing the distal end of the proximally based capsular U flap to the palmar ligaments. I then checked the motion and stability, they were excellent. I irrigated out the wound. Lastly, I went ahead and dissected out my posterior interosseous nerve. This was taken just ulnar to where my Savanna's tubercle excision had been performed. Once I dissected out 2 cm margin, I went ahead and clipped it distally and proximally. This was handed off as a specimen. With the neurectomy performed, I went ahead and left my EPL tendon transposed and closed my extensor retinaculum with 3-0 PDS suture. The subcutaneous tissue was reapproximated with couple of 4-0 Vicryl sutures and then the skin was closed with 4-0 Monocryl and Steri-Strips. A 0.25% Marcaine was infiltrated around the operative area. The wounds were dressed and well-padded cock-up wrist splint was applied. He was taken to the recovery room in stable condition. [id number]/[facility] #: [id number] GUICHO
== END | disposition home or self-care (01) ==
LOC: OR 05:42
PROVIDERS: ATTEND Orthopaedic Surgery Hand Surgery
DX: M19.031 Primary osteoarthritis, right wrist (principal); I10 Essential (primary) hypertension; Z72.0 Tobacco use; M19.90 Unspecified osteoarthritis, unspecified site
CPT/HCPCS: 88302; 88304; 88311; A9270-GY; C1776; J1100; J1885; J2250; J2405; J2704; J2765; J3010; J3490

== ENCOUNTER → 2019-03-01 08:11 | Day surgery (SDC) | payer BC ==
--- NOTE | 2019-02-14 16:23 | HP ---
CC: Dr. Mcmahan * PREOPERATIVE HISTORY AND PHYSICAL: DATE OF ADMISSION/SURGERY: 03/01/19 This patient is scheduled for same-day surgery admission by Dr. Garcia on 03/01/19. DATE OF PREOPERATIVE HISTORY AND PHYSICAL EXAMINATION: 02/14/19. ATTENDING SURGEON: Dr. Murali Garcia * (dictated by Evie Gonzalez NP). CHIEF COMPLAINT: Umbilical hernia. HISTORY OF PRESENT ILLNESS: The patient is a 63-year-old morbidly obese male, recently evaluated by Dr. Garcia for umbilical hernia. The patient reports a 3- week history of an umbilical bulge. He states that he was siting in his recliner and had a coughing fit along with sneeze and then discovered a bulge at the umbilical site. At first, it was painful and this has resolved somewhat. He does report discomfort when he is standing. He denies any skin changes. He has never had abdominal surgery. Dr. Garcia examined the patient and notes an almost reducible umbilical hernia that was too tender to fully reduce and the defect seems to be approximately 1 to 2 cm. There were no overlying skin changes. Dr. Garcia discussed the findings with the patient and has discussed open umbilical hernia repair with mesh as a same-day surgery procedure using local anesthesia and intravenous sedation. The patient is agreeable to proceed. Dr. Garcia discussed the nature of umbilical hernias, the nature of the surgical repair, the relevant risks and benefits and today I reviewed the expected postoperative care and recovery. The patient has had a chance to ask questions and stated that he understands the information and is satisfied with the answers given to his questions. He will sign surgical consent on the day of surgery. PAST MEDICAL HISTORY: Significant for morbid obesity, hypertension, GERD, and smoking. PAST SURGICAL HISTORY: Right wrist surgery in June 2018, left and right knee replacement in December and February 2017, back surgery on 2 separate occasions remotely. MEDICATIONS: 1. Montelukast sodium 10 mg p.o. daily. 2. Omeprazole 20 mg p.o. daily. 3. Metoprolol ER 100 mg one half tablet daily. 4. Ranitidine 150 mg p.o. b.i.d. 5. Losartan 100 mg p.o. daily. 6. Pepcid AC maximum strength 1 tablet daily. 7. Melatonin 3 mg daily at bedtime. ALLERGIES: PENICILLIN caused unspecified reaction in childhood, DILAUDID causes rash, FENTANYL caused hypotension and syncope. The patient states that he has taken hydrocodone for postop pain in the past without any unusual side effects or reactions. He is allergic to ADHESIVE TAPE and TEGADERM, which both caused severe dermatitis. FAMILY HISTORY: Mother with history of rheumatoid arthritis, at age 75. Father with history of prostate cancer, at age 76. No known anesthesia complications, bleeding tendencies, or clotting disorders. SOCIAL HISTORY: He is single and has a girlfriend; he is employed as a customer business manager for [employer]. He smokes a half a pack of cigarettes per day and drinks a few beers on the weekend and denies the use of other substances. REVIEW OF SYSTEMS: Constitutional: No fevers, chills, excessive fatigue, or weight loss. General: No history of deep vein thrombosis or pulmonary embolism. No previous anesthesia complications. No bleeding tendencies. No history of blood transfusions. Endocrine: No diabetes or thyroid disease. Hematologic: No easy bruising or bleeding. Respiratory: No dyspnea on exertion. No chronic cough. Cardiovascular: No anginal chest pain or palpitations. In 2017 after the left knee replacement, he had an echocardiogram with an ejection fraction of 60% to 65%. He has never had a myocardial infarction or congestive heart failure. Gastrointestinal: No nausea , vomiting, diarrhea, GI bleeding, constipation, or change in bowel habits. Genitourinary: No dysuria. Musculoskeletal: Mild joint discomfort. Integumentary: No current rashes or skin changes. Neurologic: No headache, blurred vision, or areas of focal weakness. Psychiatric: No anxiety, depression, or insomnia reported. PHYSICAL EXAMINATION GENERAL SURVEY: The patient is a 63-year-old morbidly obese male, in no acute distress. VITAL SIGNS: Height 66.5 inches, weight 294 pounds, body mass index 46.7. Blood pressure 142/86, pulse 76 and regular, respiratory rate 18, temperature 98.7 tympanic. HEENT: Benign. NECK: Supple. No cervical lymphadenopathy. BACK: No CVA tenderness. LUNGS: Breath sounds bilaterally clear and equal. HEART: Regular rate and rhythm. No murmurs or rubs appreciated. ABDOMEN: Active bowel sounds, obese, soft, nondistended. Tender only at the umbilicus where there is an almost reducible umbilical hernia, but was too tender to fully reduce completely and the defect seems to be approximately 1 to 2 cm. No overlying skin changes. Exam is limited due to body habitus. GENITALIA EXAM: Deferred. RECTAL EXAM: Deferred. EXTREMITIES: Warm, without edema or skin ulceration. NEUROLOGIC: Alert and oriented x3. Steady gait. SKIN: Warm and dry. IMPRESSION: Umbilical hernia. PLAN: Same-day surgery admission to Dr. Garcia's service for open umbilical hernia repair with mesh on 03/01/19. MARIA E GONZALEZ, EXPLOSIVES DETONATOR [id number]/[facility] #: [id number] [place]
[~2019-03-01 08:11] MED LIST changes: +Acetaminophen IV 1GM/100ML * 100 ML ONE; -Acetaminophen TAB* 325 MG PO PRN; -Bupivacaine 0.25% SDV PF* 10 ML VIAL INJ ONE; -Clindamycin 900 MG IVPREMIX(* 900 MG/50 ML SDV IV ONE; +Clindamycin 900 MG/D5W BAG(*) 900 MG/50 ML BAG IVPB ONE; -EPHEDrine (Pressors)* 50 MG/ML VIAL ONE; +Famotidine IV* 10 MG/ML 2 ML (20 mg) ONE; +HYDROcodone/ACETAMIN 5-325 MG* 1 TAB PO PRN; -HYDROmorphone INJ1* 1 MG/ML SYRINGE IV PRN; +KETAMINE HCL* 50 MG/ML 10 ML VIAL ONE; +Levalbuterol 0.63MG/3ML NEB* UNIT OF USE INH PRN; -Metoclopramide IV* 5 MG/ML 2 ML VIAL ONE; +Neostigmine Methylsulfate* 1 MG/ML 10 ML VIAL (1 mg/ml) ONE; +Ondansetron INJ* 2 MG/ML VIAL IV PRN; -Phenylephrine 10 MG/ML VIAL* 1 ML VIAL ONE; -oxyCODONE TAB* 5 MG TAB ONE
--- NOTE | 2019-03-01 11:18 | OP ---
Operative Report - Blank - Operative Report Date of Operation: 03/01/19 Note: Pre-OP Diagnoses: umbilical hernia Post-op Diagnosis: same Procedure: open umbilical hernia repair with mesh Surgeon: Jose Asst: Khushbu Anethesia: GA with LMA EBL: minimal IVF: 800cc Specimen: none Drains: none
[2019-03-01 11:37] VITALS: BP 152/86
--- NOTE | 2019-03-01 14:03 | OP ---
CC: Dr. oBbby Mcmahan; [facility] * DATE OF OPERATION: 03/01/19 - [facility] DATE OF : 57 SURGEON: Murali Garcia MD GRAIN II FARMWORKER: ELISHA Herbert ANESTHESIOLOGIST: Dr. Vickers. ANESTHESIA: General anesthesia with LMA. PRE-OP DIAGNOSIS: Umbilical hernia. POST-OP DIAGNOSIS: Umbilical hernia. OPERATIVE PROCEDURE: Open umbilical hernia repair with mesh. ESTIMATED BLOOD LOSS: Minimal. FLUIDS: 800 cc of crystalloid fluid given. SPECIMEN: None. DRAINS: None. COMPLICATIONS: None. DESCRIPTION OF PROCEDURE: The patient was identified in the preoperative area and he was marked. I discussed the case with him again, discussing the need to try to quit smoking and lose weight. The patient understood and signed consent. He was then taken to the operating room and placed on the operating table in supine position. Preoperative antibiotics were given. Sequential devices were placed on bilateral lower extremities. General anesthesia was induced. The patient's abdomen was clipped of hair and prepped and draped in standard surgical fashion. An infraumbilical incision was made. This was deepened down to the subcutaneous fat right down to the base of the hernia. We sharply incised the umbilicus off the hernia sac and then identified the hernia sac along with its contents, this appeared to be omentum. The neck of the sac was dissected from the abdominal wall down the anterior fascia. We then dumped this back into the abdomen. Blunt dissection was carried out in the preperitoneal plane, freeing up space for a mesh. In so doing, we did enter into the peritoneum at the left side, this was identified and closed with a running 2-0 Vicryl suture. The space was created for the placement of a 6.4 cm Ventralex mesh. This was then placed and sutured inferiorly and superiorly. The other strips were cut off and then we reapproximated the fascia laterally and the non-fascial tissue anterior to the mesh together to isolate this. The wound was then irrigated. Hemostasis was achieved and the wound was closed with 2-0 Vicryl sutures closer to the base of the umbilicus and also 3-0 at the subcutaneous base. Running subcuticular 4-0 Monocryl suture was placed followed by glue. The patient tolerated the procedure well. [id number]/[facility] #: [id number] [facility]
== END | disposition home or self-care (01) ==
LOC: OR 08:11
PROVIDERS: ATTEND Surgery
DX: K42.9 Umbilical hernia without obstruction or gangrene (principal); F17.210 Nicotine dependence, cigarettes, uncomplicated; E66.01 Morbid (severe) obesity due to excess calories; I10 Essential (primary) hypertension; K21.9 Gastro-esophageal reflux disease without esophagitis; Z68.42 Body mass index [BMI] 45.0-49.9, adult
CPT/HCPCS: C1781; J1100; J1885; J2250; J2405; J2704; J2710; J3010

== ENCOUNTER 2023-06-24 11:40 | Observation (INO) ==
[2023-06-24 13:30] LABS: ABS Basophils 0.1 10^3/uL (0.0-0.1); ABS Eosinophils 0.5 10^3/uL (0.0-0.5); ABS Lymphocytes 1.4 10^3/uL (1.0-4.8); ABS Monocytes 0.7 10^3/uL (0.0-1.1); ABS Neutrophils 4.3 10^3/uL (1.5-7.6); Eosinophil % 7.3 %; Hematocrit 39.5 % (38-53); Hemoglobin 13.8 g/dL (13.2-16.3); Lymphocyte % 19.9 %; Mean Corpuscular Hemoglobin 28.4 pg (27-33); Mean Corpuscular Hgb Conc 34.9 g/dL (31-36); Mean Corpuscular Volume 81.2 fL (80-97); Mean Platelet Volume 6.7 fL (7.5-11.2); Platelet Count 264 10^3/uL (150-450); Red Blood Count 4.87 10^6/uL (4.06-5.63); Red Cell Distribution Width 13.4 % (12-17)
[2023-06-24 13:34] LABS: Urine Appearance Clear; Urine Bilirubin Negative (Negative); Urine Blood Negative (Negative); Urine Color Yellow; Urine Glucose Negative (Negative); Urine Ketones Negative (Negative); Urine Nitrite Negative (Negative); Urine Protein Negative (Negative); Urine Specific Gravity 1.023 (1.002-1.030); Urine Urobilinogen 1+ (Negative)
[2023-06-24 13:40] LABS: INR 1.04 (0.83-1.13)
[2023-06-24 14:11] LABS: Albumin 4.1 g/dL (3.2-5.2); Albumin/Globulin Ratio 1.6 (1-3); C Reactive Protein 11.12 mg/L (<8.01); Calcium 8.8 mg/dL (8.6-10.3); Creatinine, Serum 0.81 mg/dL (0.67-1.17); Globulin 2.6 g/dL (2-4); Potassium 4.3 mmol/L (3.5-5.0); Total Bilirubin 0.4 mg/dL (0.2-1.0); Total Protein 6.7 g/dL (6.4-8.9); eGFR CKD-EPI 97.2 (>60)
[2023-06-24] MEDS: Iohexol 350 (CONTRAST) 500 ML MDV IV ONE (14:42)
[2023-06-24] MEDS: Furosemide 40 mg/4 ml IV VIAL IV ONE (14:44)
[2023-06-24] MEDS: Cefepime 2 GM in Dextrose 2 GM/50 ML BAG IV ONE (15:49)
[2023-06-24] MEDS: Vancomycin 1,000 MG in NS 0.9% 250 ml 250 ML IVPB ONE (15:51)
[2023-06-24] MEDS ORDERED: Vancomycin per Pharmacy 1 EA NOTE FOLLOW UP SCH (18:00)
[2023-06-24] MEDS: Nicotine PATCH 21 MG/24 HR PATCH TRANSDERM SCH (18:10)
[2023-06-24] MEDS: cefTRIAXone 1 gm/50 mL D5W 1 GM/50 ML BAG IV SCH (21:19)
[2023-06-24] MEDS: Enoxaparin 40 MG/0.4 ML SYR SUBCUT SCH (21:23)
[2023-06-24] MEDS: Vancomycin 1,250 MG in NS 0.9% 250 ml 250 ML IVPB SCH (22:24)
[2023-06-25 06:00] LABS: ABS Basophils 0.1 10^3/uL (0.0-0.1); ABS Eosinophils 0.6 10^3/uL (0.0-0.5); ABS Lymphocytes 1.2 10^3/uL (1.0-4.8); ABS Monocytes 1.2 10^3/uL (0.0-1.1); ABS Neutrophils 5.6 10^3/uL (1.5-7.6); Eosinophil % 6.6 %; Hematocrit 38.8 % (38-53); Hemoglobin 13.6 g/dL (13.2-16.3); Lymphocyte % 14.4 %; Mean Corpuscular Hemoglobin 28.6 pg (27-33); Mean Corpuscular Hgb Conc 35.1 g/dL (31-36); Mean Corpuscular Volume 81.6 fL (80-97); Mean Platelet Volume 7.1 fL (7.5-11.2); Platelet Count 257 10^3/uL (150-450); Red Blood Count 4.76 10^6/uL (4.06-5.63); Red Cell Distribution Width 13.3 % (12-17); White Blood Count 8.6 10^3/uL (3.6-10.2)
[2023-06-25 06:20] LABS: Calcium 8.6 mg/dL (8.6-10.3); Creatinine, Serum 0.81 mg/dL (0.67-1.17); Potassium 3.8 mmol/L (3.5-5.0); eGFR CKD-EPI 97.2 (>60)
[2023-06-25] MEDS ORDERED: Sulfur Hexaflouride MICROSPHR 25 MG VIAL ONE (11:06)
[2023-06-25] MEDS ORDERED: Vancomycin Trough Check NOTE FOLLOW UP ONE (12:30)
[2023-06-25 14:01] VITALS: BP 151/87
== END 2023-06-25 15:15 | disposition home or self-care (01) ==
LOC: EDHOLD 11:40 → ED 11:40 → MED 17:55
PROVIDERS: ADMIT Student in an Organized Health Care Education/Training Program; ATTEND Student in an Organized Health Care Education/Training Program